=== PATIENT | male | born 1945 | race Caucasian/White ===

== ENCOUNTER 2022-07-25 16:03 | Outpatient (REF) | payer MEDICARE, SELFPAY ==
[2022-07-25 16:40] LABS: MANUAL DIFF FLAG NO
[2022-07-25 17:22] LABS: Basophils Absolute Auto 0.1 X10*3/uL (0.0-0.2); Basophils Percent Auto 0.8 % (0-2); Eosinophils Absolute Auto 0.5 X10*3/uL (0.0-0.4); Eosinophils Percent Auto 5.1 % (0-4); Hematocrit 53.6 % (42.0-52.0); Hemoglobin 17.4 g/dl (14.0-18.0); Imm Gran Abs Auto 0.03 X10*3/uL (0.00-0.03); Imm Gran Pct Auto 0.3 % (0.0-0.4); Lymphocytes Absolute Auto 2.4 X10*3/uL (1.2-4.9); Lymphocytes Percent Auto 22.8 % (20-40); Mean Corpuscular HGB Conc 32.5 g/dl (31.0-36.0); Mean Corpuscular Hemoglobin 30.1 pg (27.0-33.0); Mean Corpuscular Volume 92.7 fL (80.0-98.0); Mean Platelet Volume 10.3 fL (9.4-12.4); Monocytes Absolute Auto 0.8 X10*3/uL (0.1-1.2); Monocytes Percent Auto 8.1 % (2-11); Neutrophils Absolute Auto 6.5 x10*3/uL (2.0-8.3); Neutrophils Percent Auto 62.9 % (45-73); Platelet Count 192 X10*3/uL (160-400); Red Blood Count 5.78 X10*6/uL (4.60-5.80); Red Cell Distribution Width 13.9 % (11.0-16.0); White Blood Count 10.3 X10*3/uL (4.8-10.8)
[2022-07-25 17:43] LABS: Appearance Urine Clear; Color Urine Yellow; Glucose Urine UA Negative (Negative); Leukocyte Esterase Urine Negative (Negative); Nitrite Urine Negative (Negative); PH 5.5 (5.0-9.0); Specific Gravity - Urine 1.015 (1.005-1.025); Urine Blood Negative (Negative); Urine Ketones Negative (Negative); Urine Protein Negative (Neg-Trace)
[2022-07-25 18:12] LABS: Alanine Aminotransferase 50 U/L (0-40); Albumin Level 4.3 g/dL (3.5-5.0); Alkaline Phosphatase 87 U/L (39-117); Aspartate Amino Transferase 48 U/L (5-37); Blood Urea Nitrogen 15 mg/dL (9-16); Calcium 9.7 mg/dL (8.4-10.2); Carbon Dioxide 29 mmol/L (22-29); Chloride 99 mmol/L (96-108); Cholesterol 173 mg/dL; Estimated Glomerular Filt Rate > 60; Glucose Random 151 mg/dL (60-115); HDL Cholesterol 48 mg/dL; LDL Cholesterol Calculated 100 mg/dl; Potassium 4.6 mmol/L (3.3-5.1); Sodium 138 mmol/L (135-145); Total Protein 7.7 g/dL (6.5-8.0); Triglycerides 125 mg/dL
[2022-07-25 18:18] LABS: Microalbum/Creatinine Ratio Ur 55.5 ug/mg cr
[2022-07-25 18:22] LABS: Anion Gap 15 (12-20)
[2022-07-25 18:36] LABS: Free T4 (Free Thyroxine) 1.04 ng/dL (0.71-1.85); PSA,Total (Free>4and<10) 0.98 ng/mL (0.00-4.00); Thyroid Stimulating Hormone 1.69 uIU/mL (0.32-4.0)
[2022-07-26 08:15] LABS: Estimated Average Glucose 183 mg/dL
== END 2022-07-25 16:04 | disposition home or self-care (01) ==
LOC: HO.LAB 16:03
PROVIDERS: PCP Internal Medicine; Visit Provider Internal Medicine
DX: I25.10 Atherosclerotic heart disease of native coronary artery without angina pectoris (principal); I10 Essential (primary) hypertension; E78.00 Pure hypercholesterolemia, unspecified; R63.5 Abnormal weight gain; E11.9 Type 2 diabetes mellitus without complications; Z12.5 Encounter for screening for malignant neoplasm of prostate
CPT/HCPCS: 36415; 80053; 80061; 81003; 82043; 83036; 84153; 84439; 84443; 85025

== ENCOUNTER → 2022-09-12 14:58 | Outpatient (REF) | payer MEDICARE, SELFPAY ==
--- NOTE | 2022-09-12 15:02 | CA_ITS ---
Transthoracic Echocardiogram Patient (Last, First, Middle): Mario Rascon, Gender: Male Date of : 1945 Age: 77 Procedure Date: 09/12/2022 Procedure Type: Transthoracic Echocardiogram Location: OP Height: 180.34 cm Weight: 127.01 kg BSA: 2.43 m2 Heart Rate: bpm BP: 122 / 68 mmHg Armhole Baster Hand: MARGARETH Referring MD: Genaro Castro MD Symptoms: 125.10 ASCD W/ ANGINA Study Quality: Fair ECG Rhythm: Sinus Conclusions: - The left ventricular systolic function is normal. The visually estimated ejection fraction is between 65-70%. - No obvious valvular pathology seen on this study. Findings Left Ventricle Normal left ventricular cavity size. There is mildly increased left ventricular wall thickness. The left ventricular systolic function is normal. The visually estimated ejection fraction is between 65-70%. There is no evidence of regional wall motion abnormalities. Diastolic function is normal for age. LV peak GLS -20.7%. Right Ventricle Normal right ventricular cavity size and systolic function. Atria The left atrium is mildly dilated. The right atrium is normal in size. Aortic Valve There is a normal trileaflet aortic valve. There is no aortic valve stenosis. There is trace (trivial) aortic valve regurgitation. Mitral Valve The mitral valve appears normal. There is no mitral valve regurgitation. There is no mitral valve stenosis. Pulmonic Valve The pulmonic valve is likely normal. Tricuspid Valve There is no tricuspid valve regurgitation. Tricuspid regurgitation envelope is inadequate for calculation of right ventricular systolic pressure. Great Vessels The asc aorta is normal in size. Venous The inferior vena cava was not well visualized. Pericardium/Pleural There is no evidence of pericardial effusion. Prior Study Comparison No prior study available for comparison. Recommendations, Care & Conclusions No obvious valvular pathology seen on this study. Measurements 2D Linear Measurements IVSd: 1.20 0.6-0.9/0.6-1.0 cm LVIDd: 4.56 3.9-5.3/4.2-5.9 cm LVIDd Index: 1.88 2.4-3.2/2.2-3.1 cm/m2 LVIDs: 2.41 2.0-3.6 cm LVPWd: 1.14 0.7-1.1 cm LA Diam: 4.70 2.7-3.8/3.0-4.0 cm LAIDs Index: 1.93 1.5-2.3 cm/m2 LV Mass: 243.04 67-162/88-224 g LV Mass Index: 100.02 43-95/49-115 g/m2 LVOT Diam: 2.10 3.0+(-)1.3 cm 2D Systolic Function EF 4C: 59.50 >55% EF 2C: 70.60 >55% EF BiP: 63.80 >55% Mitral Valve MV Pk E: 0.65 MV PK A: 0.78 MV Decel Time: 273.00 E/A: 0.80 E'Lateral: 6.74 E'Medial: 4.46 E/E' Med: 14.50 E/E' Lat: 9.60 PHT: 80.00 MVA PHT: 2.75 Decel Gordon: 2.36 Aortic Valve AoV Pk Chirag: 1.61 AoV Mn Chirag: 1.13 AoV VTI: 0.37 AoV Pk Grad: 10.00 Aov Mn Grad: 6.00 SHA Cont.VTI: 3.07 AI Pk Chirag: 3.36 AI Gordon: 1.29 LVOT LVOT Pk Chirag: 1.36 LVOT Mn Chirag: 0.93 LVOT VTI: 0.33 LVOT Pk Grad: 7.00 LVOT Mn Grad: 4.00 LVOT Diam: 2.10 LVOT Area: 3.46 Diastolic Function MV Pk E: 0.65 MV Pk A: 0.78 E/A: 0.80 E'Medial: 4.46 E/E' Med: 14.50 E' Laterial: 6.74 E/E' Lat: 9.60 Right Ventricle TAPSE (mm): 19.30 TVS' Chirag: 15.80 Great Vessels Aorta Sinus of Valsalva: 3.82 2.0-3.[address] Ridge: 3.07 1.7-3.4 cm Ao Asc: 3.90 2.1-3.4 cm Updated in Other Vendor System with Status of Final Virgilio Santizo MD electronically signed on 09/14/2022 11:42:02 AM with status of Final
== END ==
LOC: HO.CARD 14:58
PROVIDERS: PCP Internal Medicine; Visit Provider Internal Medicine
DX: I25.10 Atherosclerotic heart disease of native coronary artery without angina pectoris (principal); R53.83 Other fatigue
CPT/HCPCS: 93306; 93356

== ENCOUNTER 2022-11-28 15:04 | Outpatient (REF) | payer MEDICARE, SELFPAY ==
--- NOTE | ~2022-11-28 | XR_ITS ---
EXAMINATION: XR RIBS, RIGHT CLINICAL INFORMATION: Fall pain COMPARISON: No prior exam available. TECHNIQUE: Chest frontal, 6 of likely views. FINDINGS: RIBS: Skeletal structures are normal. LUNGS AND ARIANA: Both lungs are clear. PLEURA: Blunting of right costophrenic angle suggesting small effusion. No pneumothorax. There is elevation right hemidiaphragm. HEART: The heart is normal in size. MEDIASTINUM: The mediastinum is within normal limits.. XR/XR ribs RT min 3V w CXR1V IMPRESSION: * No radiographic evidence of rib fracture. * Elevation right hemidiaphragm. * Blunting of right costophrenic angle suggesting small effusion.
[2022-11-28 15:31] LABS: MANUAL DIFF FLAG NO
[2022-11-28 16:01] LABS: Basophils Percent Auto 0.5 % (0-2); Eosinophils Absolute Auto 0.4 X10*3/uL (0.0-0.4); Eosinophils Percent Auto 5.3 % (0-4); Hematocrit 52.1 % (42.0-52.0); Hemoglobin 16.6 g/dl (14.0-18.0); Imm Gran Abs Auto 0.02 X10*3/uL (0.00-0.03); Imm Gran Pct Auto 0.2 % (0.0-0.4); Lymphocytes Absolute Auto 1.6 X10*3/uL (1.2-4.9); Lymphocytes Percent Auto 19.1 % (20-40); Mean Corpuscular HGB Conc 31.9 g/dl (31.0-36.0); Mean Corpuscular Hemoglobin 29.3 pg (27.0-33.0); Mean Platelet Volume 9.8 fL (9.4-12.4); Monocytes Absolute Auto 0.6 X10*3/uL (0.1-1.2); Monocytes Percent Auto 7.1 % (2-11); Neutrophils Absolute Auto 5.5 x10*3/uL (2.0-8.3); Neutrophils Percent Auto 67.8 % (45-73); Platelet Count 162 X10*3/uL (160-400); Red Blood Count 5.66 X10*6/uL (4.60-5.80); Red Cell Distribution Width 14.6 % (11.0-16.0); White Blood Count 8.2 X10*3/uL (4.8-10.8)
[2022-11-28 16:07] LABS: Estimated Average Glucose 160 mg/dL; Hemoglobin A1c % 7.2 %
[2022-11-28 16:31] LABS: Alanine Aminotransferase 27 U/L (0-40); Albumin Level 3.9 g/dL (3.5-5.0); Alkaline Phosphatase 90 U/L (39-117); Anion Gap 13 (12-20); Aspartate Amino Transferase 26 U/L (5-37); Bilirubin Total 0.8 mg/dL (0.0-1.0); Blood Urea Nitrogen 10 mg/dL (9-16); Carbon Dioxide 25 mmol/L (22-29); Chloride 106 mmol/L (96-108); Estimated Glomerular Filt Rate > 60; Glucose Random 226 mg/dL (60-115); Potassium 4.4 mmol/L (3.3-5.1); Sodium 140 mmol/L (135-145); Total Protein 6.9 g/dL (6.5-8.0)
== END 2022-11-28 15:05 | disposition home or self-care (01) ==
LOC: HO.LAB 15:04
PROVIDERS: PCP Internal Medicine; Visit Provider Internal Medicine
DX: R07.81 Pleurodynia (principal); E11.9 Type 2 diabetes mellitus without complications; I10 Essential (primary) hypertension; I25.10 Atherosclerotic heart disease of native coronary artery without angina pectoris
CPT/HCPCS: 36415; 71101; 80053; 83036; 85025

== ENCOUNTER 2024-12-02 15:42 | Outpatient (AMB) | payer MEDICARE, SELFPAY ==
[2024-12-02 15:49] VITALS: BP 124/68; PULSE 64; TEMP 37; O2SAT 95; BMI 39.5
--- NOTE | 2024-12-02 15:49 | A.OFFPC_ITS ---
Vital Signs 12/02/24 15:49 Height 5 ft 10 in Weight 275 lb BMI 39.5 BP 124/68 Blood Pressure Location Lt brachial Position Sitting Pulse 64 Pulse Source Pulse Oximeter Temp 98.6 F Temp Source Axillary Pulse Oximetry (%) 95 Intake Visit Reasons: routine Cook Night Required: No Accompanied by: Self / Same As Patient Allergies No Known Allergies Allergy (Verified 12/02/24 15:55) Tobacco use date assessed: 12/02/24 Fall risk assessment: 1 Fall in past year Last assessed Fall Risk: 12/02/24 Dental Screening Dental Screen Date: 12/02/24 Did you have a dental visit in the last 12 months?: Yes Did you have a dental problem in the last 6 months where you did not have access to dental care?: No HPI HPI Comments History of Present Illness Details The patient is a 79 year old male with past medical history of diabetes, CAD, htn, hld, insomnia, anxiety/depression, BPH presenting for follow up. Last seen by PCP in August DM: Last A1C 6.3% in October. On metformin 750mg daily. Had been placed on jardi ance by cardiology. Taken off for concern of UTI by cardiology ~1 month ago. They recommended him going on antibiotic but he has waited until this visit today to discuss. He has chronic tinea cruris CV: Follows with Dr House. On crestor, losartan. Denies chest pain. No exertional dyspnea but excessive exertional fatigue. He has chronic tremor-says this has been worked up by neurology in the past and he has been told essential. He seems to have both essential and resting tremulousness. He does have cogwheel rigidity on exam so might consider reevaluation by neurology Insomnia: on trazodone 25mg daily ROS CONSTITUTIONAL: Denies weight loss, fever and chills. HEENT: Denies changes in vision and hearing. RESPIRATORY: Denies SOB and cough. CV: Denies palpitations and CP GI: Denies abdominal pain, nausea, vomiting and diarrhea. : Denies dysuria and urinary frequency. MSK: Denies new myalgia and joint pain. SKIN: Denies rash and pruritus. NEUROLOGICAL: Denies headache PSYCHIATRIC: Denies recent changes in mood. PHYSICAL EXAM: GENERAL: Alert and oriented x 3. NAD EYES: EOMI. Anicteric. HENT: Moist mucous membranes. No scleral icterus. No cervical lymphadenopathy. LUNGS: Clear to auscultation bilaterally. CARDIOVASCULAR: Regular rate and rhythm. No murmur. No JVD. ABDOMEN: Soft, non-tender +bs EXTREMITIES: No edema. Non-tender. SKIN: No rashes or lesions. Warm. NEUROLOGIC: No focal neurological deficits. CN II-XII grossly intact PSYCHIATRIC: Cooperative. Appropriate mood and affect [facility] Family History Mother Ovarian cancer Father Prostate cancer Social History Housing: Apartment Patient Tobacco Use Status: Never used Tobacco e-Cigarette/Vaping Use: Never Used service: No Current occupational status: retired Cognitive needs: No Hearing needs: No Vision needs: Yes (reading glasses) Questionnaire PHQ-9 Over the last 2 weeks, how often have you been bothered by any of the following problems? 1. Little interest or pleasure in doing things: not at all 2. Feeling down, depressed, or hopeless: not at all 3. Trouble falling or staying asleep, or sleeping too much: not at all 4. Feeling tired or having little energy: not at all 5. Poor appetite or overeating: not at all 6. Feeling bad about yourself - or that you are a failure or have let yourself or your family down: not at all 7. Trouble concentrating on things, such as reading the newspaper or watching television: not at all 8. Moving or speaking so slowly that other people could have noticed. Or the opposite - being so fidgety or restless that you have been moving around a lot more than usual: not at all 9. Thoughts that you would be better off or of hurting yourself in some way: not at all Total score: 0 Depression Screening Interpretation: Negative Depression Screening Done: Yes 72217 - PHQ-9 Billing: Yes Source: Developed by Drs. Abdulkadir Stokes, Lary Clark, Merrill Altamirano and colleagues, with an educational sushant from [employer]. Thrive Questionnaire Date Thrive assessed: 12/02/24 I am a: Patient Within the past 12 months, did the food you bought not last and you didn't have the money to get more?: Never true Within the past 12 months, did you worry whether your food would run out before you got money to buy more?: Never true Do you have trouble paying for medicines?: No Do you have trouble getting transportation to medical appointments?: No Do you have trouble paying your heating and electricity bill?: No Do you have trouble taking care of your child, family member or friend?: No Do you have trouble with day-to-day activities such as bathing, preparing meals, shopping, managing finances, etc.?: No Are you currently unemployed and looking for a job?: No Are you interested in more education?: No THRIVE Score: 0 AUDIT C Alcohol Use Questionnaire (AUDIT-C) 1. How often do you have a drink containing alcohol?: Never 3. How often do you have six or more drinks on one occasion?: Never Total Score: 0 YAMILEX-7 AMB Questionnaire YAMILEX-7 Date YAMILEX - 7 assessed: 12/02/24 Feeling nervous, anxious, or on edge: 0 = Not at all Not being able to stop or control worryin = Not at all Worrying too much about different things: 0 = Not at all Trouble relaxin = Not at all Being so restless that it is hard to sit still: 0 = Not at all Becoming easily annoyed or irritable: 0 = Not at all Feeling afraid as if something awful might happen: 0 = Not at all Total YAMILEX-7 score (0-4 normal; 5-9 mild; 10-14 moderate; 15-21 severe): 0 Source: Developed by Drs. Abdulkadir Stokes, Lary Clark, Merrill Altamirano and colleagues, with an educational sushant from [employer]. Physical exam (Primary Care) Vital Signs: Last Vital Signs Temp 98.6 F 12/02/24 15:49 Pulse 64 12/02/24 15:49 BP 124/68 12/02/24 15:49 Pulse Ox 95 12/02/24 15:49 BMI result Body Mass Index 39.5 Tobacco/Smoking Status: Tobacco use Status Tobacco use date assessed 12/02/24 12/02/24 16:02 Patient Tobacco Use Status Never used Tobacco 12/02/24 16:02 e-Cigarette/Vaping Use Never Used 12/02/24 16:02 Depression Screening Interpretation: Negative Thrive Assessment: Date of Thrive Assessment Date Thrive assessed 12/02/24 12/02/24 16:04 Coding Level of Care Code New Pt Level 4 (29490) Complex EM visit Add On G2211 Diagnoses Primary hypertension I10 Hypertension type: primary hypertension Type 2 diabetes mellitus without complication, without long-term current use of insulin E11.9 Diabetes mellitus type: type 2 Diabetes mellitus adjunct faculty for medical terminology insulin use: without fci use Diabetes mellitus complication status: without complication Urinary tract infection without hematuria, site unspecified N39.0 Urinary tract infection type: site unspecified Hematuria presence: without hematuria Major depressive disorder in partial remission, unspecified whether recurrent F32.4 Major depression recurrence: unspecified whether recurrent Additional Codes PHQ-9 - 34933 - PHQ-9 Billing: Yes ([id number]) Assessment & Plan Assessment & Plan (1) Hypertension: Code(s): I10 - Essential (primary) hypertension Category: Medical Qualifiers: Hypertension type: primary hypertension Qualified Code(s): I10 - Essential (primary) hypertension (2) Diabetes: Code(s): E11.9 - Type 2 diabetes mellitus without complications Category: Medical Qualifiers: Diabetes mellitus type: type 2 Diabetes mellitus fci insulin use: without adjunct faculty for medical terminology use Diabetes mellitus complication status: without comp lication Qualified Code(s): E11.9 - Type 2 diabetes mellitus without complications (3) UTI (urinary tract infection): Code(s): N39.0 - Urinary tract infection, site not specified Category: Medical Qualifiers: Urinary tract infection type: site unspecified Hematuria presence: without hematuria Qualified Code(s): N39.0 - Urinary tract infection, site not specified (4) Major depress, part remis: Code(s): F32.4 - Major depressive disorder, single episode, in partial remission Category: Medical Qualifiers: Major depression recurrence: unspecified whether recurrent Qualified Code(s): F32.4 - Major depressive disorder, single episode, in partial remission Plan 79 year old male to establish care Past medical, surgical, social reviewed Tremor-declines medication and neurology referral at this time Diabetes has been well controlled ?UTI-abx ordered. requests mail ordered. Fluconazole ordered. no history of prol onged QT. may take together Labs ordered. close follow up Orders: Orders TSH reflex Free T4 12/02/24 E11.9 - Type 2 diabetes mellitus without complications Complete Blood Count Auto Diff 12/02/24 E11.9 - Type 2 diabetes mellitus without complications, I10 - Essential (primary) hypertension, N39.0 - Urinary tract infection, site not specified Comprehensive Met. Panel 12/02/24 E11.9 - Type 2 diabetes mellitus without complications, I10 - Essential (primary) hypertension, N39.0 - Urinary tract infection, site not specified Hemoglobin A1c 12/02/24 E11.9 - Type 2 diabetes mellitus without complications, I10 - Essential (primary) hypertension, N39.0 - Urinary tract infection, site not specified Lipid Panel 12/02/24 E11.9 - Type 2 diabetes mellitus without complications, I10 - Essential (primary) hypertension, N39.0 - Urinary tract infection, site not specified UA CC w/rflx Micro + Cult 12/02/24 E11.9 - Type 2 diabetes mellitus without complications, I10 - Essential (primary) hypertension, N39.0 - Urinary tract infection, site not specified Medications: New metformin ER 500 mg PO DAILY 90 tabs 3RF ciprofloxacin HCl may pay out of pocket if not covered by insurance 500 mg PO BID 20 tabs 0RF fluconazole 150 mg PO DAILY 7 tabs 0RF
== END 2024-12-02 16:34 | disposition home or self-care (01) ==
LOC: HO.HMCHD 15:43
PROVIDERS: PCP Internal Medicine; Visit Provider Internal Medicine
DX: I10 Essential (primary) hypertension (principal); E11.9 Type 2 diabetes mellitus without complications; N39.0 Urinary tract infection, site not specified; F32.4 Major depressive disorder, single episode, in partial remission

== ENCOUNTER → 2024-12-02 15:42 | Outpatient (BNVA) | payer MEDICARE, SELFPAY | PROVIDERS: PCP Internal Medicine; Visit Provider Internal Medicine | DX: I10 Essential (primary) hypertension (principal); E11.9 Type 2 diabetes mellitus without complications; N39.0 Urinary tract infection, site not specified; F32.4 Major depressive disorder, single episode, in partial remission; I25.10 Atherosclerotic heart disease of native coronary artery without angina pectoris; E78.5 Hyperlipidemia, unspecified; G47.00 Insomnia, unspecified; N40.0 Benign prostatic hyperplasia without lower urinary tract symptoms; Z79.84 Long term (current) use of oral hypoglycemic drugs; Z79.899 Other long term (current) drug therapy | CPT/HCPCS: 96127; 99202 ==

== ENCOUNTER 2025-03-04 15:00 | Outpatient (AMB) | payer MEDICARE, SELFPAY ==
--- OUTSIDE RECORDS SUMMARY | 2025-03-04 15:02 | XMS_ITS | Encounter Summary ---
Author Organization [facility] Address [address] [place] [address] [place] [phone] Phone Care Team Providers Care Coffee Machine Technician Name Role Phone Tien Josue MD Unavailable [phone] Genaro Castro MD Primary Care Provider Encounter Details Date Type Department Care Team (Late st Contact Info) Description 01/13/2025 Transcribe Orders [facility] [address] [place] [address] [place] [address] Ember Louis MD [address] [place] [address] [place] [id number] Mixed hyperlipidemia (Primary Dx); Urinary tract infection without hematuria, site unspecified; Diabetes mellitus without complication; Hypertension, unspecified type Social History Tobacco Use Types Packs/Day Years Used Date Smoking Tobacco: Never Smokeless Tobacco: Never Alcohol Use Standard Drinks/Week Comments No 0 (1 standard drink = 0.6 oz pur e alcohol) Education Answer Date Recorded Are you interested in more education? Not on melody e 11/01/2022 Are you concerned about learning? Not on file 11/01/2022 No 11/01/2022 No 11/01/2022 Digital Access Answer Date Recorded No 12/02/2022 No 12/02/2022 Reliable internet access at home? Not on file 12/02/2022 Device with a working camera? Not on file Sex and Gender Information Value Date Recorded Sex Assigned at Male 10/24/2023 7:13 PM EDT Legal Sex Male 5:51 PM EDT Gender Identity Male 10/24/2023 7:13 PM EDT Sexual Orientation Straight 10/24/2023 7: 15 PM EDT documented as of this encounter Plan of Treatment Upcoming Encounters Date Type Department Care Team (Late st Contact Info) Description 07/29/2025 1:40 PM EST Office Visit [facility] [address], [address] [place] [address] Shin Sutton MD [address] [facility], [address] [place] [address] [email or web address] documented as of this encounter Results * (ABNORMAL) CBC (01/13/2025 10:26 AM EDT) WBC 8.42 4.00 - 11.00 K/uL [facility] RBC 5.38 4.50 - 5.90 M/uL [facility] HGB 16.3 13.5 - 17.5 g/dL [facility] HCT 50.2 41.0 - 53.0 % [facility] PLT 147(L) 150 - 450 K/uL [facility] MCV 93.3 80.0 - 100.0 fL [facility] MCH 30.3 27.0 - 31.0 pg [facility] MCHC 32.5 32.0 - 36.0 g/dL [facility] RDW 14.3 11.5 - 14.5 % [facility] MPV 9.9 8.4 - 12.0 fL [facility] NRBC 0.00 0.00 /100 WBCs [facility] ABSOLUTE NRBC 0.00 0.00 K/uL [facility] Blood 01/13/2025 10:2 6 AM EDT 01/13/2025 10:34 AM EDT us Ember Louis MD LAB BLOOD ORDERABLES Final R esult [facility] [address] [place] [address] * (ABNORMAL) Comprehensive metabolic panel (01/13/2025 10:26 AM EDT) SODIUM 138 133 - 146 mmol/L [facility] POTASSIUM 4.5 3.3 - 5.1 mmol/L [facility] Comment:Specimen slightly he molyzed, result may be falsely elevated. CHLORIDE 100 96 - 108 mmol/L [facility] CO2 27 21 - 35 mmol/L [facility] BUN 11 6 - 19 mg/dL [facility] CREATININE 0.70 0.5 - 1.5 mg/dL [facility] GLUCOSE 109(H) 70 - 99 mg/dL [facility] ALBUMIN 3.8(L) 3.9 - 4.8 g/dL [facility] TOTAL PROTEIN 7.2 6.5 - 8.0 g/dL [facility] CALCIUM 9.4 8.4 - 10.3 mg/dL [facility] ALKALINE PHOSPHATASE 89 39 - 117 U/L [facility] TOTAL BILIRUBIN 0.6 0.0 - 1.2 mg/dL [facility] AST 44(H) 0 - 37 U/L [facility] ALT 31 0 - 40 U/L [facility] GLOBULIN 3.4 1 - 4.8 g/dL [facility] EGFR 94 >59 mL/min/1.7 3m2 [facility] Comment:Estimated glomerular filtration rate calculated using the CKD-EPI refit equation. ANION GAP 16 10 - 20 mmol/L [facility] Blood 01/13/2025 10:2 6 AM EDT 01/13/2025 10:34 AM EDT us Ember Louis MD LAB BLOOD ORDERABLES Final R esult [facility] [address] [place] [address] * TSH with reflex (01/13/2025 10:26 AM EDT) TSH 2.74 0.27 - 4.20 uIU/mL [facility] Blood 01/13/2025 10:2 6 AM EDT 01/13/2025 10:34 AM EDT Ember Louis MD LAB BLOOD ORDERABLES Final R esult Performing Organization Address [facility] de Phone Number [address] [address] * (ABNORMAL) URINALYSIS WITH SEDIMENT (01/13/2025 10:26 AM EDT) WBC 0-4(A) NONE SEEN /hpf [facility] RBC 0-2(A) NONE SEEN /hpf [facility] URINE EPITHELIAL 0-4(A) NONE SEEN [facility] MUCUS 2+(A) NONE SEEN /hpf [facility] BACTERIA Trace(A) NONE SEEN /hpf [facility] CAST 0-2 [facility] Comment:HYALINE CAST COLOR Yellow Yellow [facility] CLARITY Clear [facility] GLUCOSE Negative Negative [facility] BILI Negative Negative [facility] KETONES Trace(A) Negative [facility] SPECIFIC GRAVITY >1.030 1.005 - 1.030 [facility] BLOOD Negative Negative [facility] PH 6.0 5.0 - 8.0 [facility] Protein-UA 1+(A) Negative [facility] NITRITE Negative Negative [facility] Leukocyte esterase, ur Negative Negative [facility] Urine (Urine) 01/13/2025 10: 26 AM EDT 01/13/2025 10:34 AM EDT Ember Louis MD URINE ORDERABLES Final Resul t Performing Organization Address [facility] de Phone Number [address] [address] * (ABNORMAL) Urine Culture (01/13/2025 10:26 AM EDT) Special Requests None 01/13/2025 10:27 AM EDT [facility] Urine Culture >100,000 colony forming units per mL MIXED DENA (3 OR MORE COLONY TYPES) Culture indicates contamination . Please resubmit if necessary.(A) 01/15/2025 10:49 AM EDT [facility] Urine (Urine) 01/13/2025 10: 26 AM EDT 01/13/2025 10:35 AM EDT Comment:URINE Ember Louis MD MICROBIOLOGY - GENERAL ORDER DONOVAN Final Result Performing Organization Address City/[facility]/ZIP Co de Phone Number [address] [address] * (ABNORMAL) Hemoglobin A1c (01/13/2025 10:26 AM EDT) HEMOGLOBIN A1C 6.5(H) 4.3 - 5.8 % [facility] Blood 01/13/2025 10:2 6 AM EDT 01/13/2025 10:35 AM EDT us Ember Louis MD LAB BLOOD ORDERABLES Final R esult Performing Organization Address City/[facility] Co de Phone Number [address] [address] * (ABNORMAL) Lipid panel (01/13/2025 10:26 AM EDT) HDL 55 mg/dL [facility] Comment: Interpretation <40 mg/dL: Low HDL cholesterol (major risk factor for CHD) Greater than or equal to 60 mg/dL: High HDL cholesterol ( negative risk factor for CHD) HDL - cholesterol is affected by a number of factors, e.g. smoking, excerise, hormones, sex and age. CHOLESTEROL 133 0 - 240 mg/dL [facility] TRIGLYCERIDES 81 30 - 160 mg/dL [facility] LDL 62 50 - 129 mg/dL [facility] Comment: LDL levels in terms of risk for coronary heart disease: <100 mg/dL: Optimal 100-129 mg/dL: Near or above optimal 130-159 mg/dL: Borderline high 160-189 mg/dL: High >190 mg/dL: Very High CARDIAC RISK RATIO 2.4(L) 3.4 - 5.0 [facility] Blood 01/13/2025 10:2 6 AM EDT 01/13/2025 10:35 AM EDT us Ember Louis MD LAB BLOOD ORDERABLES Final R esult [facility] [address] [place] [address] documented in this encounter Visit Diagnoses Diagnosis Mixed hyperlipidemia- Primary Urinary tract infection without hematuria, site unspecified Diabetes mellitus without complication Type II or unspecified type diabetes mellitus without mention of complication, not stated as uncontrolled Hypertension, unspecified type documented in this encounter Care Teams Coffee Machine Technician Relationship Specialty Start Date End Date Genaro aCstro MD [address] [place] [phone] PCP - General Internal Medicine 05/28/23 Tien Josue MD [address] [place] [id number] [email or web address] LMR Provider 04/24/17 documented as of this encounter Additional Source Comments The information contained in this document represents components of the legal health record. It is not the complete legal health record.[facility]
--- OUTSIDE RECORDS SUMMARY | 2025-03-04 15:02 | XMS_ITS | Encounter Summary ---
Author Organization [facility] Address [address] [place] [address] Phone Care Team Providers Care Student Officer Name Role Phone Aydin Cronin MD Primary Care Provider [phone] Tati Arzola WET PROCESS MILLER HEAD Unavailable Anam Mcknight MD Unavailable Shin Sutton MD Unavailable Castro Clay DO Unavailable [phone] Aydin Cronin MD Unavailable Keegan Acevedo MD Unavailable [phone] Tien Josue MD Unavailable [phone] Wanda Morrison MD Primary Care Provider [phone] Ed Benton MD Primary Care Provider Genaro Castro MD Primary Care Provider Encounter Details Date Type Department Care Team (Latest Contact Info) Description 09/15/2017 Transcribe Orders [facility] [address] [place] [address] Johnnie Castillo MD [address] [facility], [address] [place] [address] [email or web address] Numbness (Primary Dx); Weakness Social History Tobacco Use Types Packs/Day Years Used Date Smoking Tobacco: Never Smokeless Tobacco: Never Sex and Gender Information Value Date Recorded Sex Assigned at Male 10/24/2023 7:13 PM EDT Legal Sex Male 5:51 PM EDT Gender Identity Male 10/24/2023 7:13 PM EDT Sexual Orientation Straight 10/24/2023 7: 15 PM EDT documented as of this encounter Plan of Treatment Upcoming Encounters Date Type Department Care Team (Late st Contact Info) Description 07/29/2025 1:40 PM EST Office Visit [facility] [address] [facility] 3rd Floor, [address] [place] [address] Shin Sutton MD [address] [facility], [address] [place], [place] [id number] [email or web address] documented as of this encounter Results * Acetylcholine receptor binding antibody (09/15/2017 4:05 PM EDT) ACH RECEPTOR BIND AB 0.00 <=0.02 nmol/L [facility] DPT OF LAB MED AND PAT+ Comment: (NOTE) ADDITIONAL INFORMATION This test was developed and its performance characteristics determined by [facility] in a manner consistent with CLIA requirements. This test has not been cleared or approved by the U.S. Food and Drug Administration. Blood 09/15/2017 4:05 PM EDT 09/16/2017 9:55 AM EDT us Johnnie Castillo MD LAB BLOOD ORDERABLES Final R esult [facility] DPT OF LAB MED AND PAT+ [address] [place] [address] * CPK (creatine kinase) (09/15/2017 4:05 PM EDT) CREATINE KINASE 81 35 - 232 U/L [facility] Blood 09/15/2017 4:05 PM EDT 09/15/2017 6:28 PM EDT us Johnnie Castillo MD LAB BLOOD ORDERABLES Final R esult [facility] [address] [place] [address] documented in this encounter Visit Diagnoses Diagnosis Numbness- Primary Disturbance of skin sensation Weakness Other malaise and fatigue documented in this encounter Additional Health Concerns Infection Onset Date Last Indicated Resolved Time CoV-Risk 04/05/2021 04/05/2021 04/15/2021 1:25 AM EDT documented as of this encounter Care Teams Student Officer Relationship Specialty Start Date End Date Aydin Cronin MD [address] [address] [email or web address] PCP - General 04/24/17 10/21/17 Wanda Morrison MD [address] [place] [address] [place] [phone] [email or web address] PCP - General Family Medicine 10/22/17 05/19/18 Ed Benton MD [address] [place] [address] PCP - General Internal Medicine 05/20/18 05/27/23 Genaro Castro MD [address] [place] [address] [address] [place] [address] PCP - General Internal Medicine 05/28/23 Tati Arzola, BRITTANY [address] [place] [address] [address] [place] [address] [email or web address] Historical LMR Provider 04/24/1707/14/21 Anam Mcknight MD [address] [place] [address] [email or web address] Historical LMR Provider 04/24/17 07/14/21 Shin Sutton MD [address] [facility] [address] [place] [address] [email or web address] Historical LMR Provider 04/24/17 07/14/21 Castro Clay DO [address] [place] [address] [facility], [place] [address] [email or web address] Historical LMR Provider 04/24/17 07/14/21 Aydin Cronin MD [address] [place] [address] [email or web address] Historical LMR Provider 04/24/17 2 [place] [address] Historical LMR Provider 04/24/17 2 Tien Josue MD [address] [place] [address] [email or web address] Historical LMR Provider 04/24/17 documented as of this encounter Additional Source Comments The information contained in this document represents components of the legal health record. It is not the complete legal health record.[facility]
--- OUTSIDE RECORDS SUMMARY | 2025-03-04 15:02 | XMS_ITS | Encounter Summary ---
Author Organization [facility] Address [address] [place] [address] Phone Care Team Providers Care Zone Supervisor Firearms Name Role Phone Tati Arzola Aldo SOLID FIBER PASTER OPERATOR Unavailable Anam Mcknight MD Unavailable Shin Sutton MD Unavailable Castro Clay DO Unavailable Aydin Cronin MD Unavailable Keegan Acevedo MD Unavailable [phone] Tien Josue MD Unavailable [phone] Wanda Morrison MD Primary Care Provider Ed Benton MD Primary Care Provider Genaro Castro MD Primary Care Provider Encounter Details Date Type Department Care Team (Late st Contact Info) Description 10/22/2017 Procedure [facility] Admitting Dept Virtual Department [address] [place] [address] Social History Tobacco Use Types Packs/Day Years Used Date Smoking Tobacco: Never Smokeless Tobacco: Never Alcohol Use Standard Drinks/Week Comments No 0 (1 standard drink = 0.6 oz pur e alcohol) Sex and Gender Information Value Date Recorded Sex Assigned at Male 10/24/2023 7:13 PM EDT Legal Sex Male 5:51 PM EDT Gender Identity Male 10/24/2023 7:13 PM EDT Sexual Orientation Straight 10/24/2023 7: 15 PM EDT documented as of this encounter Plan of Treatment Upcoming Encounters Date Type Department Care Team ([facility] Contact Info) Description 07/29/2025 1:40 PM EST Office Visit [facility] 3rd Floor, [address] [place] [address] Shin Sutton MD [address] [facility], [address] [place] [address] [email or web address] documented as of this encounter Visit Diagnoses Not on filedocumented in this encounter Additional Health Concerns Infection Onset Date Last Indicated Resolved Time CoV-Risk 04/05/2021 04/05/2021 04/15/2021 1:25 AM EDT documented as of this encounter Care Teams Zone Supervisor Firearms Relationship Specialty Start Date End Date Wanda Morrison MD [address] [place] [address], [address] [place] [phone] [email or web address] PCP - General Family Medicine 10/22/17 05/19/18 Ed Benton MD [address] [place] [address] PCP - General Internal Medicine 05/20/18 05/27/23 Genaro Castro MD [address] [place] [address] Dr [address]REZ [address] [place] [address] PCP - General Internal Medicine 05/28/23 Tati Arzola, BRITTANY [address] [address] [email or web address] Historical LMR Provider 04/24/1707/14/21 Anam Mcknight MD [address] [place] [address] [email or web address] Historical LMR Provider 04/24/17 07/14/21 Shin Sutton MD [address] [facility], [address] [place] [address] [email or web address] Historical LMR Provider 04/24/17 07/14/21 Castro Clay DO [address] [place] [address] [facility] Medicine, [place] [address] [email or web address] Historical LMR Provider 04/24/17 07/14/21 Aydin Cronin MD [address] [place] [address] [email or web address] Historical LMR Provider 04/24/17 2 Keegan Acevedo MD [address] [place] [address] Historical LMR Provider 04/24/17 2 Tien Josue MD [address] [place] [address] [email or web address] Historical LMR Provider 04/24/17 documented as of this encounter Additional Source Comments The information contained in this document represents components of the legal health record. It is not the complete legal health record.[facility]
--- OUTSIDE RECORDS SUMMARY | 2025-03-04 15:02 | XMS_ITS | Encounter Summary ---
Author Organization [facility] Address [address] [address] Phone Care Team Providers Care Timber Hand Name Role Phone Tien Josue MD Unavailable [phone] Genaro Castro MD Primary Care Provider Reason for Referral * MRI/CAT Scan - Closed Specialty Diagnoses / Procedures Referred By Richard hammer Referred To Contact Radiology Diagnoses Other forms of angina pectoris Procedures NC Myocardial Perfusion Pharmacologic Stress Multiple NC Myocardial Perfusion Exercise Multiple Shin Sutton MD Phone: tel: fax: [email or web address] Referral ID Status Reason Start Date Expiration Date Visits Re quested Visits Authorized [id number] Closed 05/28/2023 1 1 Encounter Details Date Type Department Care Team (Latest Contact Info) Description 08/14/2023 Ancillary Orders [facility] [address] [place] [address] 3rd Floor, [address] [place] [address] Shin Sutton MD [address] [facility], [address] [address] [email or web address] Essential hypertension (Primary Dx); Coronary artery disease involving [place] coronary artery of [place] heart without angina pectoris; Mixed hyperlipidemia; Other forms of angina pectoris Social History Tobacco Use Types Packs/Day Years [...] Description 07/29/2025 1:40 PM EST Office Visit [facility] [address] [place] [address] 3rd Floor, [address] [place] [address] Shin Sutton MD [address] [place] [address], [address] [address] [email or web address] documented as of this encounter Results * NC Myocardial Perfusion Pharmacologic Stress Multiple (08/14/2023 2:25 PM EST) Stress/rest perfusion ratio 1.02 Nuc Stress EF 66 % SNMDIAVOL 101.0 mL SNMSYSVOL 34.0 mL Nuc Rest EF 67 % RNMDIAVOL 108.0 mL RNMSYSVOL 36.0 mL Anatomical Region Laterality Modality Heart, Vascular Ultrasound Narrative 08/15/2023 4:19 PM EST Normal myocardial perfusion imaging. There are no fixed or reversible perfusion defects. TID ratio is normal at 1.02. LVEF was 67% at rest and 66% poststress. Comparison is made to the prior study report from August 2016. There are no residual perfusion defects. Stress Findings NUCLEAR REPORT: TYPE OF STUDY: Myocardial Perfusion Imaging after Regadenoson protocol with gated SPECT. PROTOCOL USED: One day Regadenoson rest-stress protocol in the supine position. Images were obtained in gated tomographic technique. Images were processed in SPECT format, reconstructed tomographically and compared [id number] in short axis, horizontal long axis and vertical long axis. DOSE: Technetium 99m Sestamibi 7.5 mCi injected intravenously in the right arm antecubital vein at rest on 08/14/2023 with post injection scan time of 60 minutes. Technetium 99m Sestamibi 22.4 mCi injected intravenously in the right arm antecubital vein during stress after Regadenoson injection on 08/14/2023 with post injection scan time of 40 minutes. Overall image quality is good. ECG STRESS REPORT: WALKING REGADENOSON STUDY WEIGHT:287 The Nuclear study was performed as a walking pharmacologic study due to to unsteady gait with related inability to exercise on a treadmill to reach Maximum Predicted Heart Rate (MPHR). Mario Rueda received 0.4 mg of Regadenoson after walking on the treadmill for 1.0 minutes at 1.0 miles per hour. Regadenoson was given IV push over 10 seconds as per protocol immediately followed by injection of Tc99m Sestamibi by Iglesia Stokes, the medical technologist generalist. 1. EKG - Baseline EKG showed SR HR 99 bpm. After injection of lexiscan, there were sagging ST segment in III without EKG changes meeting criteria for ischemia. 2. SYMPTOMS - No chest pain. 3. PHYSIOLOGY - Resting HR was 97 bpm. After Lexiscan injection, HR was 137 bpm (95% MPHR). BP 142/80 mmHg at rest, BP 176/98 mmHg after Lexiscan injection, BP 148/82 mmHg on discharge from stress lab. 4. ARRHYTHMIAS - none Conclusion - The EKG portion of this test is non diagnostic for ischemia. No symptoms concerning for angina. Nuclear images pending and will be reported separately. See attached stress report for full details. Ciarra Reyna PA-C, MPH Stress Function Defect Left ventricular global function is normal during stress. Stress ejection fraction is 66 %. The stress end diastolic cavity size is normal. The stress end systolic cavity size is normal. Rest Function Defect Left ventricular global function is normal at rest. Resting ejection fraction was 67 %. The rest end diastolic cavity size is normal. The rest end systolic cavity size is normal. Nuclear Prior Study There is a prior study available for comparison that was performed on 08/12/2016. Nuclear Ancillary Finding There is no evidence of TID. The TID ratio is 1.02. . Perfusion Scoring Resting Summed Score: 2 Percent Normal: 2.94% Mild count reduction in the following segments: basal inferolateral and mid inferolateral. All other segments are normal. SUPINE IMAGING Perfusion Scoring Stress Summed Score: 1 Percent Normal: 1.47% Mild count reduction in the following segments: basal inferolateral. All other segments are normal. PRONE IMAGING Perfusion Scores: SRS Score: 2 Percentage Abnormal: 2.94% Perfusion Scores: SSS Score: 1 Percentage Abnormal: 1.47% Perfusion Scores: SDS Score: N/A Percentage Abnormal: N/A Procedure Note Raymond Olmos MD - 08/15/2023 Normal myocardial perfusion imaging. There are no fixed or reversible perfusion defects. TID ratio is normal at 1.02. LVEF was 67% at rest and 66% poststress. Comparison is made to the prior study report from August 2016. Thereare no residual perfusion defects. us Shin Sutton MD CV NM CARDIAC Final Resul t documented in this encounter Visit Diagnoses Diagnosis Other forms of angina pectoris- Primary Essential hypertension- Primary Unspecified essential hypertension Coronary artery disease involving [place] coronary artery of [place] heart without angina pectoris Mixed hyperlipidemia Other forms of angina pectoris documented in this encounter Care Teams Timber Hand Relationship Specialty Start Date End Date Genaro Castro MD [address] [place] [address] [address] [place] [address] PCP - General Internal Medicine 05/28/23 Tien Josue MD [address] [place] [address] [email or web address] Historical LMR Provider 04/24/17 documented as of this encounter Additional Source Comments The information contained in this document represents components of the legal health record. It is not the complete legal health record.[facility]
--- OUTSIDE RECORDS SUMMARY | 2025-03-04 15:02 | XMS_ITS | Clinical Summary ---
Author Organization [facility] Address [address] [place] [address] Phone Care Team Providers Care Household Coordinator Name Role Phone Tien Josue MD Unavailable [phone] Genaro Castro MD Primary Care Provider Allergies Active Allergy Reactions Criticality Noted Date Comments Enalapril 02/20/2022 Zbgefrq-Fph-Iwa Reductase Inhibitors Myalgia Medium 06/02/2017 Tolerates rosuvastatin Medications aspirin 81 MG EC tablet Take by mouth daily. Active allopurinol (ZYLOPRIM) 100 MG tablet Take 100 mg by mouth daily. Active melatonin 5 mg Cap Take 5 mg by mouth nightly at bedtime. Active nystatin (NYSTOP) powder Apply 1 application topically 4 (four) times a day. Active hydrocortisone 2.5 % cream Apply 1 application. topically daily as needed. 2 Active glipiZIDE (GLUCOTROL XL) 5 MG 24 hr tablet Take 5 mg by mouth 2 (two) times a day. 4 Active traZODone (DESYREL) 50 MG tablet Take 50 mg by mouth nightly at bedtime. 4 Active metFORMIN (GLUCOPHAGE-XR) 750 MG 24 hr tablet Take 750 mg by mouth daily with breakfast. 4 Active tamsulosin (FLOMAX) 0.4 mg Cap Take by mouth. 4 Active rosuvastatin (CRESTOR) 40 MG tabletIndicatio ns:Medication refill TAKE 1 TABLET DAILY 90 tablet 3 5 Active hydroCHLOROthia zide 25 MG tablet Take 1 tablet (25 mg total) by mouth daily. 90 tablet 3 5 Active metoprolol succinate (TOPROL-XL) 25 MG 24 hr tabletIndicatio ns:Medication refill TAKE 1 TABLET DAILY 90 tablet 3 5 Active ciprofloxacin HCl (CIPRO) 500 MG tablet Take 500 mg by mouth 2 (two) times a day. 5 Active fluconazole (DIFLUCAN) 150 MG tablet Active losartan (COZAAR) 100 MG tabletIndicatio ns:Medication refill TAKE 1 TABLET DAILY 90 tablet 3 5 Active Active Problems Problem Noted Date Diagnosed Date Urinary tract infection 11/11/2024 Assessment & Plan (11/11/2024 2:35 PM EDT): Images from the original note were not included. He has been having intermittent symptoms consistent with a UTI. Someone had ordered him for a urinalysis, he does not recall who. I have reviewed this and he does look consistent with a UTI. He is again having symptoms of urinary urgency/frequency. He was never prescribed any antibiotics I have asked him to stop taking his Jardiance I have asked him to follow-up with either his PCP or his urologist today for treatment of what I think is a UTI Diastolic dysfunction 11/11/2024 Assessment & Plan (01/17/2025 1:23 PM EDT): Today he is telling me that he never had exertional dyspnea which he had said he did have at the last visit. However apparently he was having leg swelling which he says notably improved after the addition of hydrochlorothiazide. He did have a significant UTI while on Jardiance and should not take this medication again. Currently denying any symptoms concerning for CHF. He is euvolemic on examination. Will just continue him on hydrochlorothiazide for now. In the future could consider adding Aldactone. Assessment & Plan (11/11/2024 2:39 PM EDT): His exertional dyspnea did improve somewhat he thinks after he was started on Jardiance. Unfortunately have to stop the Jardiance as he has recurring symptoms of UTI and a concerning urinalysis done back in October. Stop Jardiance Starting hydrochlorothiazide as above Follow-up in 6 weeks, will try to add some Aldactone at that time. Coronary artery disease invo lving ione coronary artery of ione heart without angina pectoris 06/02/2017 Overview (11/28/2017): 04/2015 PCI GIA Cfx; GIA LOUISE Assessment & Plan (01/17/2025 1:25 PM EDT): 04/2015 PCI drug-eluting stent circumflex; GIA LOUISE Currently denying any anginal symptoms however he does not really exert himself. Finding a lot of difficulty getting the motivation to get out of the house so he is consequently pretty sedentary he says. He has nuclear stress test in August 2023 did not show any ischemia. Continue aspirin 81 mg daily Continue rosuvastatin 40 mg daily We did discuss the importance of engaging in regular cardiovascular exercise, encouraged him to at least try getting out of his house once a day and going for a walk. Unclear if there is some untreated underlying depression, he had a significant lack of motivation to leave his house he says. Assessment & Plan (11/11/2024 2:36 PM EDT): 04/2015 PCI drug-eluting stent circumflex; GIA LOUISE Currently denying any typical anginal symptoms. He does have persistent exertional dyspnea which had improved somewhat after being started on Jardiance which is now being stopped due to UTI. He did have a nuclear stress test 09/03/2023 which did not show any ischemia Continue aspirin 81 mg daily Continue rosuvastatin 40 mg daily (LDL goal less than 70) Lab Results Component Value Date CHOL 141 10/26/2024 HDL 60 10/26/2024 LDL 60 10/26/2024 TRIG 104 10/26/2024 CHOLHDL 2.4 (L) 10/26/2024 Assessment & Plan (05/24/2020 4:40 PM EST): 04/2015 PCI drug-eluting stent circumflex; GIA LOUISE He continues to deny chest pain, shortness of breath, palpitations. He reports that he feels well. He does not check his blood pressures at home but today in the office high got a blood pressure of 140/70. He continues to take aspirin 81 mg daily, metoprolol 25 mg daily. He does have some mild edema bilaterally but nothing significant. He reports that he has had scrotal edema for over a year, and he was recommended to see his PCP for management. Assessment & Plan (12/01/2019 3:41 PM EDT): No concerning symptoms. Assessment & Plan (06/01/2019 4:21 PM EST): No angina 4 years out. Assessment & Plan (11/25/2018 4:53 PM EDT): No significant cardiac symptoms. Assessment & Plan (05/20/2018 4:42 PM EST): No angina. Medications appropriate. Assessment & Plan (12/02/2017 3:28 PM EDT): No evidence of recurrence. He has no angina. Medications are fine. He needs to be more active. Assessment & Plan (06/02/2017 3:32 PM EST): He is now 2 years out from his intervention. No angina. Essential hypertension 06/02/2017 Assessment & Plan (01/17/2025 1:21 PM EDT): Blood pressure well-controlled here in the office today on current medications which will be continued without change Assessment & Plan (11/11/2024 2:36 PM EDT): Blood pressure 158/76 here in the office today. Start hydrochlorothiazide 25 mg daily Recheck BMP in a few weeks Continue his other current antihypertensives without change Assessment & Plan (05/24/2020 4:39 PM EST): -Her blood pressure in the office today was 162/68. Blood pressure was rechecked in 40/70. He continues to take losartan 100 mg daily, Toprol 25 mg daily, he also takes an aspirin 81 mg daily. Assessment & Plan (12/01/2019 3:41 PM EDT): Blood pressure is fine today. I have asked him to bring his home monitor to his next visit and be sure it is accurate. I have then suggested that he check his blood pressure before going to sleep a couple times a week and to report them if they are consistently over 140. Assessment & Plan (06/01/2019 4:26 PM EST): Moderately elevated today. He has changed his medications to nighttime dosing. They are pretty much 24-hour medications so he should make a major deal but his blood pressure was elevated today and was at least 30 points better 6 months ago. Darryn is I am sure you are aware, is somewhat anxious and may be a contributor but he is also put on considerable weight. He is agreed to get a blood pressure monitor and to check this at least a couple times a week and call me if he is not consistently under 130. He is not sure of his dosing. If he is on losartan 50 and his pressure is up I would push it to 100 but if he is already at 100 and I would probably add HCTZ. Assessment & Plan (11/25/2018 4:54 PM EDT): Well-controlled on present therapy. I do not believe his mild edema is related to his medications. He has put on some weight and is very sedentary. I told him to watch salt in the try to keep his legs elevated and to let me know if it gets worse. Assessment & Plan (05/20/2018 4:43 PM EST): Elevated today and I have increased his losartan to 100 mg a day. I will have labs drawn in several months prior to his next appointment. Assessment & Plan (12/02/2017 3:29 PM EDT): Controlled on present therapy. Assessment & Plan (06/02/2017 3:33 PM EST): Fair control today. No medication changes. Mixed hyperlipidemia 06/02/2017 Assessment & Plan (05/24/2020 4:38 PM EST): Last LDL was 79. He can continue to take lovastatin 40 mg daily Assessment & Plan (12/01/2019 3:42 PM EDT): Good profile with LDL in the 70s and HDL in the 50s. Triglycerides were 82. Renal function is normal. LFTs are fine although he has a very slight elevation of his transaminases. He denies alcohol. Assessment & Plan (06/01/2019 4:26 PM EST): Good profile with an LDL of 69, HDL 52 and triglycerides 114. LFTs are fine. Creatinine is 0.7 with a BUN of 13 and a potassium of 4.2. Assessment & Plan (11/25/2018 4:54 PM EDT): Remains on his statin. No recent labs forwarded but I understand that a was sent to his primary physician. I believe this Dr. Moctezuma and if he sees this note and can send me a copy of those labs I would appreciate it Assessment & Plan (05/20/2018 4:42 PM EST): Lipid profile is fine with an LDL of 69, HDL 57 and triglycerides 133. Creatinine normal at 0.8. Assessment & Plan (12/02/2017 3:29 PM EDT): Labs drawn in September include an LDL of 61 with an HDL of 62 and triglycerides 125. Hepatic and metabolic profiles are fine. Assessment & Plan (06/02/2017 3:33 PM EST): Remains on high-dose rosuvastatin. He has not had his lipids drawn but will do so sometime in the next several months. Encounters Date Type Department Care Team Description 01/24/2025 Refill [facility] [address], [address] [place] [address] Shin Sutton MD Medication Refill 01/17/2025 1:00 PM EDT Office Visit [facility] [address], [address] [place] [address] Janes Carlos CNP Coronary artery disease involving ione coronary artery of ione heart without angina pectoris (Primary Dx); Essential hypertension; Diastolic dysfunction 01/17/2025 Refill [facility] [address], [address] [place] [address] Shin Sutton MD Medication Refill 01/13/2025 9:43 AM EDT - 01/13/2025 11:59 PM EDT Hospital Encounter [facility] [address] [place] [address] Ember Louis MD Discharge Disposition: Home or Self Care 01/13/2025 Transcribe Orders [facility] [address] [place] [address] Ember Louis MD Mixed hyperlipidemia (Primary Dx); Urinary tract infection without hematuria, site unspecified; Diabetes mellitus without complication; Hypertension, unspecified type from Last 3 Months Immunizations Immunization Administration Dates Next Due Influenza Trivalent Adjuvanted Preservative free IM 04/18/2017 Pneumococcal conjugate PCV13 04/18/2017 Family History Medical History Relation Comments Cancer Father 2 Cancer Mother 2 Relation Status Comments Father 1 Father 2 Mother 1 Mother 2 Social History Tobacco Use Types Packs/Day Years [...] Orientation Straight 10/24/2023 7: 15 PM EDT Last Filed Vital Signs Vital Sign Reading Time Taken Comments Blood Pressure 130/64 01/17/2025 12:39 PM EDT Pulse 68 01/17/2025 12:39 PM EDT Temperature 37.1 C (98.8 F) 04/05/2021 4:39 PM EDT Respiratory Rate 22 04/05/2021 4:39 PM EDT Oxygen Saturation 94% 01/17/2025 12:39 PM EDT Inhaled Oxygen Concentration - - Weight 126.6 kg (279 lb) 01/17/2025 12:39 PM EDT Height 177.8 cm (5' 10 ) 01/17/2025 12:39 PM EDT Body Mass Index 40.03 01/17/2025 12:39 PM EDT Plan of Treatment Upcoming Encounters Date Type Department Care Team (Late st Contact Info) Description 07/29/2025 1:40 PM EST Office Visit [facility] [address] [place] [address] [address] Floor, [address] [place] [address] Shin Sutton MD [address] [facility], [address] [place] [id number] [email or web address] Health Maintenance Due Date Last Done Comments DEPRESSION SCREENING 1957 HEPATITIS C SCREENING 1963 ZOSTER VACCINES (1 of 2) 1996 RSV VACCINE (1 - 1-dose 75+ series) 2021 DIABETIC EYE EXAM 12/23/2023 COVID-19 VACCINE ( season) 2024 04/30/2021, 08/14/2020, 07/24/2020 INFLUENZA VACCINE (#1) 2025 7, 04/18/2017, 05/13/2016 HEMOGLOBIN A1C 07/16/2025 01/13/2025, 10/06, 07/22/2024, Additional history exists BLOOD PRESSURE 07/20/2025 01/17/2025 CREATININE LEVEL 01/13/2026 01/13/2025, , 07/22/2024, Additional history exists POTASSIUM LEVEL 01/13/2026 01/13/2025, 10/06, 07/22/2024, Additional history exists Adult Td,Tdap Booster 10/01/2027 09/30/2017 PNEUMOCOCCAL VACCINES (50+ years) Completed 09/30/2017, 04/18/2017 SMOKING STATUS SCREENING (Once After 26 Yrs) Completed 01/17/2025 HEPATITIS A VACCINES Aged Out No long er eligible based on patient's age to complete this topic HIB VACCINES Aged Out No longer eligi ble based on patient's age to complete this topic MENINGOCOCCAL VACCINES (ACWY) Aged Out No longer eligible based on patient's age to complete this topic MENINGOCOCCAL VACCINES (B) Aged Out N o longer eligible based on patient's age to complete this topic Medical Devices Not on file Procedures Procedure Name Priority Date/Time Associated Diagnosis Comments LIPID PANEL Routine 01/13/2025 10:26 AM EDT Mixed hyperlipidemia Urinary tract infection without hematuria, site unspecified Diabetes mellitus without complication Hypertension, unspecified type HEMOGLOBIN A1C Routine 01/13/2025 10:26 AM EDT Mixed hyperlipidemia Urinary tract infection without hematuria, site unspecified Diabetes mellitus without complication Hypertension, unspecified type URINALYSIS WITH SEDIMENT Routine 01/13/2025 10:26 AM EDT Mixed hyperlipidemia Urinary tract infection without hematuria, site unspecified Diabetes mellitus without complication Hypertension, unspecified type TSH WITH REFLEX Routine 01/13/2025 10:26 AM EDT Mixed hyperlipidemia Urinary tract infection without hematuria, site unspecified Diabetes mellitus without complication Hypertension, unspecified type COMPREHENSIVE METABOLIC PANEL Routine 01/13/2025 10:26 AM EDT Mixed hyperlipidemia Urinary tract infection without hematuria, site unspecified Diabetes mellitus without complication Hypertension, unspecified type CBC Routine 01/13/2025 10:26 AM EDT Mixed hyperlipidemia Urinary tract infection without hematuria, site unspecified Diabetes mellitus without complication Hypertension, unspecified type URINE CULTURE Routine 01/13/2025 10:26 AM EDT Mixed hyperlipidemia Urinary tract infection without hematuria, site unspecified Diabetes mellitus without complication Hypertension, unspecified type from Last 3 Months Results * (ABNORMAL) Urine Culture (01/13/2025 10:26 AM EDT) Special Requests None 01/13/2025 10:27 AM EDT [facility] Urine Culture >100,000 colony forming units per mL MIXED DENA (3 OR MORE COLONY TYPES) Culture indicates contamination . Please resubmit if necessary.(A) 01/15/2025 10:49 AM EDT [facility] Urine (Urine) 01/13/2025 10: 26 AM EDT 01/13/2025 10:35 AM EDT Comment:URINE us Ember Louis MD MICROBIOLOGY - GENERAL ORDER DONOVAN Final Result Performing Organization Address [facility] Co de Phone Number [address] [address] * (ABNORMAL) URINALYSIS WITH SEDIMENT (01/13/2025 10:26 AM EDT) WBC 0-4(A) NONE SEEN /hpf [facility] RBC 0-2(A) NONE SEEN /hpf [facility] URINE EPITHELIAL 0-4(A) NONE SEEN [facility] MUCUS 2+(A) NONE SEEN /hpf [facility] BACTERIA Trace(A) NONE SEEN /hpf [facility] CAST 0-2 [facility] Comment:HYALINE CAST COLOR Yellow Yellow [facility] CLARITY Clear [facility] GLUCOSE Negative Negative [facility] BILI Negative Negative [facility] KETONES Trace(A) Negative [facility] SPECIFIC GRAVITY >1.030 1.005 - 1.030 [facility] BLOOD Negative Negative [facility] PH 6.0 5.0 - 8.0 [facility] Protein-UA 1+(A) Negative [facility] NITRITE Negative Negative [facility] Leukocyte esterase, ur Negative Negative [facility] Urine (Urine) 01/13/2025 10: 26 AM EDT 01/13/2025 10:34 AM EDT Ember Louis MD URINE ORDERABLES Final Resul t Performing Organization Address City/[facility]/ZIP Co de Phone Number [address] [address] * (ABNORMAL) Comprehensive metabolic panel (01/13/2025 10:26 AM EDT) SODIUM 138 133 - 146 mmol/L [facility] POTASSIUM 4.5 3.3 - 5.1 mmol/L [facility] Comment:Specimen slightly he molyzed, result may be falsely elevated. CHLORIDE 100 96 - 108 mmol/L [facility] CO2 27 21 - 35 mmol/L [facility] BUN 11 6 - 19 mg/dL [facility] CREATININE 0.70 0.5 - 1.5 mg/dL [facility] GLUCOSE 109(H) 70 - 99 mg/dL [facility] ALBUMIN 3.8(L) 3.9 - 4.8 g/dL [facility] TOTAL PROTEIN 7.2 6.5 - 8.0 g/dL [facility] CALCIUM 9.4 8.4 - 10.3 mg/dL [facility] ALKALINE PHOSPHATASE 89 39 - 117 U/L [facility] TOTAL BILIRUBIN 0.6 0.0 - 1.2 mg/dL [facility] AST 44(H) 0 - 37 U/L [facility] ALT 31 0 - 40 U/L [facility] GLOBULIN 3.4 1 - 4.8 g/dL [facility] EGFR 94 >59 mL/min/1.7 3m2 [facility] Comment:Estimated glomerular filtration rate calculated using the CKD-EPI refit equation. ANION GAP 16 10 - 20 mmol/L [facility] Blood 01/13/2025 10:2 6 AM EDT 01/13/2025 10:34 AM EDT us Ember Louis MD LAB BLOOD ORDERABLES Final R esult [facility] [address] [place] [address] * TSH with reflex (01/13/2025 10:26 AM EDT) TSH 2.74 0.27 - 4.20 uIU/mL [facility] Blood 01/13/2025 10:2 6 AM EDT 01/13/2025 10:34 AM EDT us Ember Louis MD LAB BLOOD ORDERABLES Final R esult Performing Organization Address City/[facility]/ZIP Co de Phone Number [address] [address] * (ABNORMAL) CBC (01/13/2025 10:26 AM EDT) WBC 8.42 4.00 - 11.00 K/uL [facility] RBC 5.38 4.50 - 5.90 M/uL [facility] HGB 16.3 13.5 - 17.5 g/dL [facility] HCT 50.2 41.0 - 53.0 % [facility] PLT 147(L) 150 - 450 K/uL [facility] MCV 93.3 80.0 - 100.0 fL [facility] MCH 30.3 27.0 - 31.0 pg [facility] MCHC 32.5 32.0 - 36.0 g/dL [facility] RDW 14.3 11.5 - 14.5 % [facility] MPV 9.9 8.4 - 12.0 fL [facility] NRBC 0.00 0.00 /100 WBCs [facility] ABSOLUTE NRBC 0.00 0.00 K/uL [facility] Blood 01/13/2025 10:2 6 AM EDT 01/13/2025 10:34 AM EDT us Ember Louis MD LAB BLOOD ORDERABLES Final R esult [address] [address] * (ABNORMAL) Hemoglobin A1c (01/13/2025 10:26 AM EDT) HEMOGLOBIN A1C 6.5(H) 4.3 - 5.8 % [facility] Blood 01/13/2025 10:2 6 AM EDT 01/13/2025 10:35 AM EDT us Ember Louis MD LAB BLOOD ORDERABLES Final R esult Performing Organization Address City/[facility]/ZIP Co de Phone Number [address] [address] * (ABNORMAL) Lipid panel (01/13/2025 10:26 AM EDT) HDL 55 mg/dL [facility] Comment: Interpretation <40 mg/dL: Low HDL cholesterol (major risk factor for CHD) Greater than or equal to 60 mg/dL: High HDL cholesterol ( negative risk factor for CHD) HDL - cholesterol is affected by a number of factors, e.g. smoking, excerise, hormones, sex and age. CHOLESTEROL 133 0 - 240 mg/dL [facility] TRIGLYCERIDES 81 30 - 160 mg/dL [facility] LDL 62 50 - 129 mg/dL [facility] Comment: LDL levels in terms of risk for coronary heart disease: <100 mg/dL: Optimal 100-129 mg/dL: Near or above optimal 130-159 mg/dL: Borderline high 160-189 mg/dL: High >190 mg/dL: Very High CARDIAC RISK RATIO 2.4(L) 3.4 - 5.0 [facility] Blood 01/13/2025 10:2 6 AM EDT 01/13/2025 10:35 AM EDT us Ember Louis MD LAB BLOOD ORDERABLES Final R esult Performing Organization Address City/[facility] Co de Phone Number [address] [address] from Last 3 Months Insurance [facility] [employer] SUPPLEMENT MEDICARE PART A & B [facility] [employer] SUPPLEMENT MEDICARE PART A & B [facility] [employer] MEDEX SUPPLEMENT MEDICARE PART A & B [facility] [employer] MED[employer] SUPPLEMENT MEDICARE PART A & B [facility] [employer] SUPPLEMENT MEDICARE PART A & B [facility] [employer] SUPPLEMENT MEDICARE PART A & B [employer] [facility] [employer] SUPPLEMENT MEDICARE PART A & B [employer] [facility] [employer] MEDEX SUPPLEMENT MEDICARE PART A & B [facility] [employer] SUPPLEMENT MEDICARE PART A & B Care Teams Household Coordinator Relationship Specialty Start Date End Date Genaro Castro MD [address] [place] [address] [address] [place] [address] PCP - General Internal Medicine 05/28/23 Tien Josue MD [address] [place] [phone] [email or web address] LMR Provider 04/24/17 Additional Source Comments The information contained in this document represents components of the legal health record. It is not the complete legal health record.[facility]
--- OUTSIDE RECORDS SUMMARY | 2025-03-04 15:02 | XMS_ITS | Encounter Summary ---
Author Organization [facility] Address [address] [place] [phone] Phone Care Team Providers Care Canvas Cutter Hand Name Role Phone Tien Josue MD Unavailable [phone] Genaro Castro MD Primary Care Provider Encounter Details Date Type Department Care Team (Late st Contact Info) Description 10/31/2023 Procedure Pass Echo [facility] [address] [place] [address] Social History Tobacco Use Types Packs/Day Years [...] Description 07/29/2025 1:40 PM EST Office Visit [facility] [address] [facility] [address]rd Floor, [address] [place] [address] Shin Sutton MD [address] [facility], [address] [place] [address] [email or web address] documented as of this encounter Visit Diagnoses Not on filedocumented in this encounter Care Teams Canvas Cutter Hand Relationship Specialty Start Date End Date Genaro Castro MD [address] [place] [id number] PCP - General Internal Medicine 05/28/23 Tien Josue MD [address] [place] [phone] [email or web address] Historical LMR Provider 04/24/17 documented as of this encounter Additional Source Comments The information contained in this document represents components of the legal health record. It is not the complete legal health record.[facility]
--- NOTE | 2025-03-04 15:27 | A.OFFPC_ITS ---
Vital Signs 03/04/25 15:40 Height 5 ft 10 in Weight 128.367 kg BMI 40.6 BP 150/60 H Pulse 65 Pulse Source Pulse Oximeter Temp 98.6 F Temp Source Temporal Artery Scan Pulse Oximetry (%) 95 Oxygen Delivery Method Room Air Intake Visit Reasons: 3 Month F/U Yoga Coordinator Required: No Accompanied by: Self / Same As Patient Allergies bee pollen (bee stings) Allergy (Mild, Verified 03/04/25 15:32) Hives Medication List - Last Reconciled 03/04/25 by CONNIE Cunningham allopurinol 100 mg PO BID aspirin 81 mg PO DAILY glipizide ER 5 mg PO BID hydrochlorothiazide 25 mg PO DAILY losartan 100 mg PO DAILY melatonin mg PO DAILY PRN metformin ER 500 mg PO DAILY metoprolol succinate ER 25 mg PO DAILY nystatin 1 appl topical TID PRN rosuvastatin (Crestor) 40 mg PO DAILY tamsulosin 0.4 mg PO DAILY trazodone 25 mg (1/2 x 50 mg) PO BEDTIME Tobacco use date assessed: 12/02/24 Dental Screening Dental Screen Date: 12/02/24 HPI HPI Comments History of Present Illness Details The patient is a 79 year old male with past medical history of diabetes, CAD, htn, hld, insomnia, anxiety/depression, BPH presenting for follow up. DM: Last A1C 6.3% in October. On metformin 750mg daily. Had been placed on jardiance by cardiology. Trigone off of Jardiance by cardiology. Does still continue to have urinary symptoms. CV: Follows with Dr House. On crestor, losartan. Denies chest pain. No exertional dyspnea but excessive exertional fatigue. He has chronic tremor-says this has been worked up by neurology in the past and he has been told essential. He seems to have both essential and resting tremulousness. He does have cogwheel rigidity and tremor on exam. Has been referred to Neurology BPH: following with Dr. Lucia Insomnia: on trazodone 25mg daily Concerns: Intertriginous candidiasis-present for years. Unable to use the nystatin powder. Has been using hydrocortisone cream without any effect. Previously followed with Dermatology. memory since childhood Health maintenance: No longer undergoing colonoscopies ROS: see hpi EXAM: Constitutional - Awake and Alert, No apparent distress Eyes - PERRL Cardiovascular - S1S2, RRR, No edema Respiratory - Normal lung expansion, Normal respiratory effort, No respiratory distress, CTA bilaterally Extremities - no calf tenderness bilaterally, no swelling Skin - Warm/Dry . Tinea cruris right axilla. Intertriginous candidiasis under breasts and in groin Neurological - Alert & oriented x3 Psychological - Appropriate affect [facility] Medical History (Updated 03/04/25 @ 17:29 by CONNIE Cunningham) Diabetes Hypertension Major depress, part remis Intertriginous candidiasis Family History Mother Ovarian cancer Father Prostate cancer Social History Housing: Apartment Patient Tobacco Use Status: Never used Tobacco e-Cigarette/Vaping Use: Never Used service: No Current occupational status: retired Cognitive needs: No Hearing needs: No Vision needs: Yes (reading glasses) Questionnaire Thrive Questionnaire Date Thrive assessed: 12/02/24 YAMILEX-7 AMB Questionnaire YAMILEX-7 Date YAMILEX - 7 assessed: 12/02/24 Source: Developed by Drs. Abdulkadir Stokes, Lary Clark, Merrill Altamirano and colleagues, with an educational sushant from [employer]. Physical exam (Primary Care) Vital Signs: Last Vital Signs Temp 98.6 F 03/04/25 15:40 Pulse 65 03/04/25 15:40 BP 150/60 H 03/04/25 15:40 Pulse Ox 95 03/04/25 15:40 Oxygen Delivery Method Room Air 03/04/25 15:40 BMI result Body Mass Index 40.6 Tobacco/Smoking Status: Tobacco use Status Tobacco use date assessed 12/02/24 03/04/25 15:29 Patient Tobacco Use Status Never used Tobacco 03/04/25 15:29 e-Cigarette/Vaping Use Never Used 03/04/25 15:29 Thrive Assessment: Date of Thrive Assessment Date Thrive assessed 12/02/24 03/04/25 15:29 Coding Level of Care Code Est Pt Level 4 (79809) Complex EM visit Add On G2211 Diagnoses Intertriginous candidiasis B37.2 Tinea cruris B35.6 Primary hypertension I10 Hypertension type: primary hypertension Type 2 diabetes mellitus without complication, without long-term current use of insulin E11.9 Diabetes mellitus type: type 2 Diabetes mellitus long term care phlebotomist insulin use: without group home use Diabetes mellitus complication status: without complication Assessment & Plan Assessment & Plan (1) Intertriginous candidiasis: Code(s): B37.2 - Candidiasis of skin and nail Category: Medical Plan: Nystatin cream. Counseled on the importance of hygiene (2) Tinea cruris: Code(s): B35.6 - Tinea cruris Category: Medical Plan: Nystatin cream (3) Hypertension: Code(s): I10 - Essential (primary) hypertension Category: Medical Qualifiers: Hypertension type: primary hypertension Qualified Code(s): I10 - Essential (primary) hypertension Plan: Controlled on recheck. Continue current therapies (4) Diabetes: Code(s): E11.9 - Type 2 diabetes mellitus without complications Category: Medical Qualifiers: Diabetes mellitus type: type 2 Diabetes mellitus group home insulin use: without group home use Diabetes mellitus complication status: without complication Qualified Code(s): E11.9 - Type 2 diabetes mellitus without complications Plan: Last hemoglobin A1c well controlled. Updated hemoglobin A1c ordered. Continue metformin, glipizide. Diabetic diet. Referred to endocrinology at his request Plan Follow-up in the office in 4 months with PCP. Labs to be completed following visit today Orders: Orders Liver Panel Today E11.9 - Type 2 diabetes mellitus without complications, F32.4 - Major depressive disorder, single episode, in partial remission, I10 - Essential (primary) hypertension, N39.0 - Urinary tract infection, site not specified Basic Metabolic Panel Today E11.9 - Type 2 diabetes mellitus without complications, F32.4 - Major depressive disorder, single episode, in partial remission, I10 - Essential (primary) hypertension, N39.0 - Urinary tract infection, site not specified Complete Blood Count Auto Diff Today E11.9 - Type 2 diabetes mellitus without complications, F32.4 - Major depressive disorder, single episode, in partial remission, I10 - Essential (primary) hypertension, N39.0 - Urinary tract infection, site not specified Lipid Panel Today E11.9 - Type 2 diabetes mellitus without complications, F32.4 - Major depressive disorder, single episode, in partial remission, I10 - Essential (primary) hypertension, N39.0 - Urinary tract infection, site not specified UA CC w/rflx Micro + Cult Today E11.9 - Type 2 diabetes mellitus without complications, F32.4 - Major depressive disorder, single episode, in partial remission, I10 - Essential (primary) hypertension, N39.0 - Urinary tract infection, site not specified Referrals Endocrinology Referral E11.9 - Type 2 diabetes mellitus without complications Medications: New nystatin 1 appl topical TID 30 grams 6RF
[2025-03-04 15:40] VITALS: BP 150/60; PULSE 65; TEMP 37; O2SAT 95; BMI 40.6
== END 2025-03-04 16:24 | disposition home or self-care (01) ==
LOC: HO.HMCHD 15:00
PROVIDERS: PCP Internal Medicine; Visit Provider Physician Assistant
DX: B37.2 Candidiasis of skin and nail (principal); B35.6 Tinea cruris; I10 Essential (primary) hypertension; E11.9 Type 2 diabetes mellitus without complications

== ENCOUNTER → 2025-03-04 15:00 | Outpatient (BNVA) | payer MEDICARE, SELFPAY | PROVIDERS: PCP Internal Medicine; Visit Provider Internal Medicine | DX: B37.2 Candidiasis of skin and nail (principal); B35.6 Tinea cruris; I10 Essential (primary) hypertension; E11.9 Type 2 diabetes mellitus without complications; G47.00 Insomnia, unspecified; Z79.84 Long term (current) use of oral hypoglycemic drugs; Z79.899 Other long term (current) drug therapy | CPT/HCPCS: 99212 ==

== ENCOUNTER 2025-03-15 13:35 | Outpatient (REF) | payer MEDICARE, SELFPAY ==
[2025-03-15 13:58] LABS: MANUAL DIFF FLAG NO
[2025-03-15 14:45] LABS: Hematocrit 50.0 % (42.0-52.0); Hemoglobin 16.5 g/dl (14.0-18.0); Imm Gran Abs Auto 0.04 X10*3/uL (0.00-0.03); Imm Gran Pct Auto 0.4 % (0.0-0.4); Lymphocytes Absolute Auto 1.8 X10*3/uL (1.2-4.9); Mean Corpuscular HGB Conc 33.0 g/dl (31.0-36.0); Mean Corpuscular Hemoglobin 30.7 pg (27.0-33.0); Mean Corpuscular Volume 93.1 fL (80.0-98.0); NRBC Abs Auto 0.000 X10*3/uL (0.0-0.012); NRBC Pct Auto 0.0 /100WBC (0.0-0.2); Platelet Count 157 X10*3/uL (160-400); Red Blood Count 5.37 X10*6/uL (4.60-5.80); White Blood Count 8.9 X10*3/uL (4.8-10.8)
[2025-03-15 14:53] LABS: Hemoglobin A1C 202.9295 umol/L; Total Hemoglobin (HGBA1C) 4147.2715 umol/L
[2025-03-15 15:23] LABS: Alanine Aminotransferase 36 U/L (0-40); Albumin Level 4.3 g/dL (3.5-5.0); Alkaline Phosphatase 96 U/L (39-117); Anion Gap 12 (12-20); Aspartate Amino Transferase 36 U/L (5-37); Blood Urea Nitrogen 13 mg/dL (9-16); Calcium 9.3 mg/dL (8.4-10.2); Carbon Dioxide 27 mmol/L (22-29); Chloride 107 mmol/L (96-108); Cholesterol 132 mg/dL (<200); Estimated Glomerular Filt Rate > 60; HDL Cholesterol 59 mg/dL (>40); Potassium 4.2 mmol/L (3.3-5.1); Sodium 142 mmol/L (135-145); Total Protein 7.6 g/dL (6.5-8.0); Triglycerides 96 mg/dL (<150)
[2025-03-15 15:30] LABS: Appearance Urine Clear; Glucose Urine UA Negative (Negative); PH 5.0 (5.0-9.0); Specific Gravity - Urine 1.025 (1.005-1.025); UMIC TRIGGER UACC YES
[2025-03-15 15:43] LABS: UACC Culture Trigger YES
--- OUTSIDE RECORDS SUMMARY | 2025-03-15 16:09 | XMS_ITS | Encounter Summary ---
Author Organization [facility] Address [address] [place] [address] Phone Care Team Providers Care Etcher Apprentice Name Role Phone Tati Arzola Aldo LIGHT BULB REPLACER Unavailable Anam Mcknight MD Unavailable Shin Sutton MD Unavailable Castro Clay DO Unavailable [phone] Aydin Cronin MD Unavailable Keegan Acevedo MD Unavailable [phone] Tien Josue MD Unavailable [phone] Wanda Morrison MD Primary Care Provider [phone] Ed Benton MD Primary Care Provider Genaro Castro MD Primary Care Provider Encounter Details Date Type Department Care Team (Late st Contact Info) Description 10/22/2017 Procedure Pass [facility] Admitting Dept Virtual Department [address] [place] [address] Social History Tobacco Use Types Packs/Day [...] Upcoming Encounters Date Type Department Care Team ([facility] Contact Info) Description 07/29/2025 1:40 PM EST Office Visit [facility] 3rd Floor, [address] [place] [address] Shin Sutton MD [address] [facility], [address] [place] [address] [email or web address] documented as of this encounter Visit Diagnoses Not on filedocumented in this encounter Additional Health Concerns Infection Onset Date Last Indicated Resolved Time CoV-Risk 04/05/2021 04/05/2021 04/15/2021 1:25 AM EDT documented as of this encounter Care Teams Etcher Apprentice Relationship Specialty Start Date End Date Wanda Morrison MD [address] [place] [address], [address] [place] [phone] [email or web address] PCP - General Family Medicine 10/22/17 05/19/18 Ed Benton MD [address] [place] [address] PCP - General Internal Medicine 05/20/18 05/27/23 Genaro Castro MD [address] [place] [address] Dr RAMÍREZ [address] [place] [address] PCP - General Internal Medicine 05/28/23 Tati Arzola, BRITTANY [address] [address] [email or web address] Historical LMR Provider 04/24/1707/14/21 Anam Mcknight MD [address] [place] [address] [email or web address] Historical LMR Provider 04/24/17 07/14/21 Shin Sutton MD [address] [facility], [address] [place] [address] [email or web address] Historical LMR Provider 04/24/17 07/14/21 Castro Clay DO [address] [place] [address] [facility], [place] [address] [email or web address] Historical LMR Provider 04/24/17 07/14/21 Aydin Cronin MD [address] [place] [address] [email or web address] Historical LMR Provider 04/24/17 2 Keegan Acevedo MD [address] [place] [address] Historical LMR Provider 04/24/17 2 Tien Josue MD [address] [place] [address] [email or web address] Historical LMR Provider 04/24/17 documented as of this encounter Additional Source Comments The information contained in this document represents components of the legal health record. It is not the complete legal health record.[facility]
--- OUTSIDE RECORDS SUMMARY | 2025-03-15 16:09 | XMS_ITS | Clinical Summary ---
Author Organization [facility] Address [address] [place] [address] Phone Care Team Providers Care Iv Rn Name Role Phone Tien Josue MD Unavailable [phone] Genaro Castro MD Primary Care Provider Allergies Active Allergy Reactions Criticality Noted Date Comments Enalapril 02/20/2022 Tbucjos-Xxj-Cwo Reductase Inhibitors Myalgia Medium 06/02/2017 Tolerates rosuvastatin [...] that time. Coronary artery disease invo lving cher[place]ae [place] coronary artery of [place] heart without angina pectoris 06/02/2017 Overview (11/28/2017): [...] Type Department Care Team Description 01/24/2025 Refill [facility] [address] Floor, [address] [place] [address] Shin Sutton MD Medication Refill 01/17/2025 1:00 PM EDT Office Visit [facility] [address] Floor, [address] [place] [address] Janes Carlos CNP Coronary artery disease involving cher-ae [place] coronary artery of cher[place]ae [place] heart without angina pectoris (Primary Dx); Essential hypertension; Diastolic dysfunction 01/17/2025 Refill [facility] [address] 3rd Floor, [address] [place] [address] Shin Sutton MD Medication Refill 01/13/2025 9:43 AM EDT - 01/13/2025 11:59 PM EDT Hospital Encounter [facility] [address] [place] [address] Ember Louis MD Discharge Disposition: Home or Self Care 01/13/2025 Transcribe Orders [facility] [address] [place] [address] Ember Louis MD Mixed hyperlipidemia (Primary Dx); [...] Description 07/29/2025 1:40 PM EST Office Visit [facility] [address] [place] [address] 3rd Floor, [address] [place] [address] Shin Sutton MD [address] [facility], [address] [place] [address] [email or web address] Health Maintenance Due Date Last Done [...] Special Requests None 01/13/2025 10:27 AM EDT [facility] Urine Culture >100,000 colony forming units per mL MIXED DENA (3 OR MORE COLONY TYPES) Culture indicates contamination . Please resubmit if necessary.(A) 01/15/2025 10:49 AM EDT [facility] Urine (Urine) 01/13/2025 10: 26 AM EDT 01/13/2025 10:35 AM EDT Comment:URINE us Ember Louis MD MICROBIOLOGY - GENERAL ORDER DONOVAN Final Result Performing Organization Address [facility] Co de Phone Number [address] [address] * (ABNORMAL) URINALYSIS WITH SEDIMENT (01/13/2025 10:26 AM EDT) WBC 0-4(A) NONE SEEN /hpf [facility] RBC 0-2(A) NONE SEEN /hpf [facility] URINE EPITHELIAL 0-4(A) NONE SEEN [facility] MUCUS 2+(A) NONE SEEN /hpf [facility] BACTERIA Trace(A) NONE SEEN /hpf [facility] CAST 0-2 [facility] Comment:HYALINE CAST COLOR Yellow Yellow [facility] CLARITY Clear [facility] GLUCOSE Negative Negative [facility] BILI Negative Negative [facility] KETONES Trace(A) Negative [facility] SPECIFIC GRAVITY >1.030 1.005 - 1.030 [facility] BLOOD Negative Negative [facility] PH 6.0 5.0 - 8.0 [facility] Protein-UA 1+(A) Negative [facility] NITRITE Negative Negative [facility] Leukocyte esterase, ur Negative Negative [facility] Urine (Urine) 01/13/2025 10: 26 AM EDT 01/13/2025 10:34 AM EDT Ember Louis MD URINE ORDERABLES Final Resul t Performing Organization Address City/[facility]/ZIP Co de Phone Number [address] [address] * (ABNORMAL) Comprehensive metabolic panel (01/13/2025 10:26 AM EDT) SODIUM 138 133 - 146 mmol/L [facility] POTASSIUM 4.5 3.3 - 5.1 mmol/L [facility] Comment:Specimen slightly he molyzed, result may be falsely elevated. CHLORIDE 100 96 - 108 mmol/L [facility] CO2 27 21 - 35 mmol/L [facility] BUN 11 6 - 19 mg/dL [facility] CREATININE 0.70 0.5 - 1.5 mg/dL [facility] GLUCOSE 109(H) 70 - 99 mg/dL [facility] ALBUMIN 3.8(L) 3.9 - 4.8 g/dL [facility] TOTAL PROTEIN 7.2 6.5 - 8.0 g/dL [facility] CALCIUM 9.4 8.4 - 10.3 mg/dL [facility] ALKALINE PHOSPHATASE 89 39 - 117 U/L [facility] TOTAL BILIRUBIN 0.6 0.0 - 1.2 mg/dL [facility] AST 44(H) 0 - 37 U/L [facility] ALT 31 0 - 40 U/L [facility] GLOBULIN 3.4 1 - 4.8 g/dL [facility] EGFR 94 >59 mL/min/1.7 3m2 [facility] Comment:Estimated glomerular filtration rate calculated using the CKD-EPI refit equation. ANION GAP 16 10 - 20 mmol/L [facility] Blood 01/13/2025 10:2 6 AM EDT 01/13/2025 10:34 AM EDT us Ember Louis MD LAB BLOOD ORDERABLES Final R esult [facility] [address] [place] [address] * TSH with reflex (01/13/2025 10:26 AM EDT) TSH 2.74 0.27 - 4.20 uIU/mL [facility] Blood 01/13/2025 10:2 6 AM EDT 01/13/2025 10:34 AM EDT us Ember Louis MD LAB BLOOD ORDERABLES Final R esult Performing Organization Address City/[facility]/ZIP Co de Phone Number [address] [address] * (ABNORMAL) CBC (01/13/2025 10:26 AM EDT) WBC 8.42 4.00 - 11.00 K/uL [facility] RBC 5.38 4.50 - 5.90 M/uL [facility] HGB 16.3 13.5 - 17.5 g/dL [facility] HCT 50.2 41.0 - 53.0 % [facility] PLT 147(L) 150 - 450 K/uL [facility] MCV 93.3 80.0 - 100.0 fL [facility] MCH 30.3 27.0 - 31.0 pg [facility] MCHC 32.5 32.0 - 36.0 g/dL [facility] RDW 14.3 11.5 - 14.5 % [facility] MPV 9.9 8.4 - 12.0 fL [facility] NRBC 0.00 0.00 /100 WBCs [facility] ABSOLUTE NRBC 0.00 0.00 K/uL [facility] Blood 01/13/2025 10:2 6 AM EDT 01/13/2025 10:34 AM EDT us Ember Louis MD LAB BLOOD ORDERABLES Final R esult [address] [address] * (ABNORMAL) Hemoglobin A1c (01/13/2025 10:26 AM EDT) HEMOGLOBIN A1C 6.5(H) 4.3 - 5.8 % [facility] Blood 01/13/2025 10:2 6 AM EDT 01/13/2025 10:35 AM EDT us Ember Louis MD LAB BLOOD ORDERABLES Final R esult Performing Organization Address [facility]/ZIP Co de Phone Number [address] [address] * (ABNORMAL) Lipid panel (01/13/2025 10:26 AM EDT) HDL 55 mg/dL [facility] Comment: Interpretation <40 mg/dL: Low HDL cholesterol (major risk factor for CHD) Greater than or equal to 60 mg/dL: High HDL cholesterol ( negative risk factor for CHD) HDL - cholesterol is affected by a number of factors, e.g. smoking, excerise, hormones, sex and age. CHOLESTEROL 133 0 - 240 mg/dL [facility] TRIGLYCERIDES 81 30 - 160 mg/dL [facility] LDL 62 50 - 129 mg/dL [facility] Comment: LDL levels in terms of risk for coronary heart disease: <100 mg/dL: Optimal 100-129 mg/dL: Near or above optimal 130-159 mg/dL: Borderline high 160-189 mg/dL: High >190 mg/dL: Very High CARDIAC RISK RATIO 2.4(L) 3.4 - 5.0 [facility] Blood 01/13/2025 10:2 6 AM EDT 01/13/2025 10:35 AM EDT us Ember Louis MD LAB BLOOD ORDERABLES Final R esult Performing Organization Address [facility] Co de Phone Number [address] [address] from Last 3 Months Insurance [facility] MEDEX SUPPLEMENT MEDICARE PART A & B [facility] MEDEX SUPPLEMENT MEDICARE PART A & B [email or web address] MEDEX SUPPLEMENT MEDICARE PART A & B [email or web address] MED[employer] SUPPLEMENT MEDICARE PART A & B [email or web address] MEDEX SUPPLEMENT MEDICARE PART A & B [email or web address] MEDEX SUPPLEMENT MEDICARE PART A & B [email or web address] MEDEX SUPPLEMENT MEDICARE PART A & B [email or web address] MEDEX SUPPLEMENT MEDICARE PART A & B [facility] MEDEX SUPPLEMENT MEDICARE PART A & B Care Teams Iv Rn Relationship Specialty Start Date End Date Genaro Castro MD [address] [place] [address] [address] [place] [address] PCP - General Internal Medicine 05/28/23 Tien Josue MD [address] [place] [address] [email or web address] Historical LMR Provider 04/24/17 Additional Source Comments The information contained in this document represents components of the legal health record. It is not the complete legal health record.[facility]
--- OUTSIDE RECORDS SUMMARY | 2025-03-15 16:09 | XMS_ITS | Encounter Summary ---
Author Organization [facility] Address [address] [place] [address] Phone Care Team Providers Care Book Jacket Cover Machine Operator Name Role Phone Aydin Cronin MD Primary Care Provider [phone] Tati Arzola AGRICULTURAL ECONOMIST Unavailable Anam Mcknight MD Unavailable Shin Sutton MD Unavailable Castro Clay DO Unavailable [phone] Aydin Cronin MD Unavailable Keegan Acevedo MD Unavailable [phone] Tien Josue MD Unavailable [phone] Wanda Morrison MD Primary Care Provider [phone] Ed Benton MD Primary Care Provider Genaro Castro MD Primary Care Provider Encounter Details Date Type Department Care Team (Latest Contact Info) Description 09/15/2017 Transcribe Orders [facility] [address] [place] [address] Johnnie Castillo MD [address] [facility], [address] [place] [address] [email or web address] Numbness (Primary Dx); Weakness Social History [...] Description 07/29/2025 1:40 PM EST Office Visit [facility] [address] [facility] 3rd Floor, [address] [place] [address] Shin Sutton MD [address] [facility], [address] [place], [place] [id number] [email or web address] documented as of this encounter Results * Acetylcholine receptor binding antibody (09/15/2017 4:05 PM EDT) ACH RECEPTOR BIND AB 0.00 <=0.02 nmol/L [facility]PT OF LAB MED AND PAT+ Comment: (NOTE) ADDITIONAL INFORMATION This test was developed and its performance characteristics determined by [facility] in a manner consistent with CLIA requirements. This test has not been cleared or approved by the U.S. Food and Drug Administration. Blood 09/15/2017 4:05 PM EDT 09/16/2017 9:55 AM EDT us Johnnie Castillo MD LAB BLOOD ORDERABLES Final R esult [facility] DPT OF LAB MED AND PAT+ [address] [place] [address] * CPK (creatine kinase) (09/15/2017 4:05 PM EDT) CREATINE KINASE 81 35 - 232 U/L [facility] Blood 09/15/2017 4:05 PM EDT 09/15/2017 6:28 PM EDT us Johnine Castillo MD LAB BLOOD ORDERABLES Final R esult [facility] [address] [place] [address] documented in this encounter Visit Diagnoses Diagnosis Numbness- Primary Disturbance of skin sensation Weakness Other malaise and fatigue documented in this encounter Additional Health Concerns Infection Onset Date Last Indicated Resolved Time CoV-Risk 04/05/2021 04/05/2021 04/15/2021 1:25 AM EDT documented as of this encounter Care Teams Book Jacket Cover Machine Operator Relationship Specialty Start Date End Date Aydin Cronin MD [address] [address] [email or web address] PCP - General 04/24/17 10/21/17 Wanda Morrison MD [address] [place] [address] [address] [place] [phone] [email or web address] PCP - General Family Medicine 10/22/17 05/19/18 Ed Benotn MD [address] [place] [address] PCP - General Internal Medicine 05/20/18 05/27/23 Genaro Castro MD [address] [place] [address] [address] [place] [address] PCP - General Internal Medicine 05/28/23 Tati Arzola, BRITTANY [address] [place] [address] [address] [place] [address] [email or web address] Historical LMR Provider 04/24/1707/14/21 Anam Mcknight MD [address] [place] [address] [email or web address] Historical LMR Provider 04/24/17 07/14/21 Shin Sutton MD [address] [facility] [address] [place] [address] [email or web address] Historical LMR Provider 04/24/17 07/14/21 Castro Clay DO [address] [place] [address] [facility], [place] [address] [email or web address] Historical LMR Provider 04/24/17 07/14/21 Aydin Cronin MD [address] [place] [address] [email or web address] Historical LMR Provider 04/24/17 2 Keegan [place] [address] Historical LMR Provider 04/24/17 2 Tien Josue MD [address] [place] [address] [email or web address] Historical LMR Provider 04/24/17 documented as of this encounter Additional Source Comments The information contained in this document represents components of the legal health record. It is not the complete legal health record.[facility]
--- OUTSIDE RECORDS SUMMARY | 2025-03-15 16:09 | XMS_ITS | Encounter Summary ---
Author Organization [facility] Address [address] [place] [address] [place] [phone] Phone Care Team Providers Care Money Counter Name Role Phone Tien Josue MD Unavailable [phone] Genaro Castro MD Primary Care Provider Encounter Details Date Type Department Care Team (Late st Contact Info) Description 01/13/2025 Transcribe Orders [facility] [address] [place] [address] [place] [address] Ember Louis MD [address] [place] [address] [phone] Mixed hyperlipidemia (Primary Dx); Urinary tract infection [...] Description 07/29/2025 1:40 PM EST Office Visit [facility] [address] [facility] 3rd Floor, [address] [place] [address] Shin Sutton MD 22 [facility], [address] [place] [address] [email or web address] documented as of this encounter Results * (ABNORMAL) CBC (01/13/2025 10:26 AM EDT) WBC 8.42 4.00 - 11.00 K/uL [facility] RBC 5.38 4.50 - 5.90 M/uL [facility] HGB 16.3 13.5 - 17.5 g/dL [facility] HCT 50.2 41.0 - 53.0 % [facility] PLT 147(L) 150 - 450 K/uL [facility] MCV 93.3 80.0 - 100.0 fL [facility] MCH 30.3 27.0 - 31.0 pg [facility] MCHC 32.5 32.0 - 36.0 g/dL [facility] RDW 14.3 11.5 - 14.5 % [facility] MPV 9.9 8.4 - 12.0 fL [facility] NRBC 0.00 0.00 /100 WBCs [facility] ABSOLUTE NRBC 0.00 0.00 K/uL [facility] Blood 01/13/2025 10:2 6 AM EDT 01/13/2025 10:34 AM EDT us Ember Louis MD LAB BLOOD ORDERABLES Final R esult [facility] [address] [place] [address] * (ABNORMAL) Comprehensive metabolic panel (01/13/2025 10:26 AM EDT) SODIUM 138 133 - 146 mmol/L [facility] POTASSIUM 4.5 3.3 - 5.1 mmol/L [facility] Comment:Specimen slightly he molyzed, result may be falsely elevated. CHLORIDE 100 96 - 108 mmol/L [facility] CO2 27 21 - 35 mmol/L [facility] BUN 11 6 - 19 mg/dL [facility] CREATININE 0.70 0.5 - 1.5 mg/dL [facility] GLUCOSE 109(H) 70 - 99 mg/dL [facility] ALBUMIN 3.8(L) 3.9 - 4.8 g/dL [facility] TOTAL PROTEIN 7.2 6.5 - 8.0 g/dL [facility] CALCIUM 9.4 8.4 - 10.3 mg/dL [facility] ALKALINE PHOSPHATASE 89 39 - 117 U/L [facility] TOTAL BILIRUBIN 0.6 0.0 - 1.2 mg/dL [facility] AST 44(H) 0 - 37 U/L [facility] ALT 31 0 - 40 U/L [facility] GLOBULIN 3.4 1 - 4.8 g/dL [facility] EGFR 94 >59 mL/min/1.7 3m2 [facility] Comment:Estimated glomerular filtration rate calculated using the CKD-EPI refit equation. ANION GAP 16 10 - 20 mmol/L [facility] Blood 01/13/2025 10:2 6 AM EDT 01/13/2025 10:34 AM EDT us Ember Louis MD LAB BLOOD ORDERABLES Final R esult [facility] [address] [place] [address] * TSH with reflex (01/13/2025 10:26 AM EDT) TSH 2.74 0.27 - 4.20 uIU/mL [facility] Blood 01/13/2025 10:2 6 AM EDT 01/13/2025 10:34 AM EDT Ember Louis MD LAB BLOOD ORDERABLES Final R esult Performing Organization Address [facility] de Phone Number [address] [address] * (ABNORMAL) URINALYSIS WITH SEDIMENT (01/13/2025 10:26 AM EDT) WBC 0-4(A) NONE SEEN /hpf [facility] RBC 0-2(A) NONE SEEN /hpf [facility] URINE EPITHELIAL 0-4(A) NONE SEEN [facility] MUCUS 2+(A) NONE SEEN /hpf [facility] BACTERIA Trace(A) NONE SEEN /hpf [facility] CAST 0-2 [facility] Comment:HYALINE CAST COLOR Yellow Yellow [facility] CLARITY Clear [facility] GLUCOSE Negative Negative [facility] BILI Negative Negative [facility] KETONES Trace(A) Negative [facility] SPECIFIC GRAVITY >1.030 1.005 - 1.030 [facility] BLOOD Negative Negative [facility] PH 6.0 5.0 - 8.0 [facility] Protein-UA 1+(A) Negative [facility] NITRITE Negative Negative [facility] Leukocyte esterase, ur Negative Negative [facility] Urine (Urine) 01/13/2025 10: 26 AM EDT 01/13/2025 10:34 AM EDT Ember Louis MD URINE ORDERABLES Final Resul t Performing Organization Address [facility] de Phone Number [address] [address] * (ABNORMAL) Urine Culture (01/13/2025 10:26 AM EDT) Special Requests None 01/13/2025 10:27 AM EDT [facility] Urine Culture >100,000 colony forming units per mL MIXED DENA (3 OR MORE COLONY TYPES) Culture indicates contamination . Please resubmit if necessary.(A) 01/15/2025 10:49 AM EDT [facility] Urine (Urine) 01/13/2025 10: 26 AM EDT 01/13/2025 10:35 AM EDT Comment:URINE Ember Louis MD MICROBIOLOGY - GENERAL ORDER DONOVAN Final Result Performing Organization Address City/[facility]/ZIP Co de Phone Number [address] [address] * (ABNORMAL) Hemoglobin A1c (01/13/2025 10:26 AM EDT) HEMOGLOBIN A1C 6.5(H) 4.3 - 5.8 % [facility] Blood 01/13/2025 10:2 6 AM EDT 01/13/2025 10:35 AM EDT us Ember Louis MD LAB BLOOD ORDERABLES Final R esult Performing Organization Address City/[facility] Co de Phone Number [address] [address] * (ABNORMAL) Lipid panel (01/13/2025 10:26 AM EDT) HDL 55 mg/dL [facility] Comment: Interpretation <40 mg/dL: Low HDL cholesterol (major risk factor for CHD) Greater than or equal to 60 mg/dL: High HDL cholesterol ( negative risk factor for CHD) HDL - cholesterol is affected by a number of factors, e.g. smoking, excerise, hormones, sex and age. CHOLESTEROL 133 0 - 240 mg/dL [facility] TRIGLYCERIDES 81 30 - 160 mg/dL [facility] LDL 62 50 - 129 mg/dL [facility] Comment: LDL levels in terms of risk for coronary heart disease: <100 mg/dL: Optimal 100-129 mg/dL: Near or above optimal 130-159 mg/dL: Borderline high 160-189 mg/dL: High >190 mg/dL: Very High CARDIAC RISK RATIO 2.4(L) 3.4 - 5.0 C [facility] Blood 01/13/2025 10:2 6 AM EDT 01/13/2025 10:35 AM EDT us Ember Louis MD LAB BLOOD ORDERABLES Final R esult [facility] [address] [place] [address] documented in this encounter Visit Diagnoses Diagnosis Mixed hyperlipidemia- Primary Urinary tract infection without hematuria, site unspecified Diabetes mellitus without complication Type II or unspecified type diabetes mellitus without mention of complication, not stated as uncontrolled Hypertension, unspecified type documented in this encounter Care Teams Money Counter Relationship Specialty Start Date End Date Genaro Castro MD [address] [place] [address] PCP - General Internal Medicine 05/28/23 Tien Josue MD [address] [place] [phone] [email or web address] LMR Provider 04/24/17 documented as of this encounter Additional Source Comments The information contained in this document represents components of the legal health record. It is not the complete legal health record.[facility]
--- OUTSIDE RECORDS SUMMARY | 2025-03-15 16:09 | XMS_ITS | Encounter Summary ---
Author Organization [facility] Address [address] [address] Phone Care Team Providers Care Pneumatic Riveter Name Role Phone Tien Josue MD Unavailable [phone] Genaro Castro MD Primary Care Provider Reason for Referral * MRI/CAT Scan - Closed Specialty Diagnoses / Procedures Referred By Richard hammer Referred To Contact Radiology Diagnoses Other forms of angina pectoris Procedures NC Myocardial Perfusion Pharmacologic Stress Multiple NC Myocardial Perfusion Exercise Multiple Shin Sutton MD Phone: tel: fax: [email or web address] Referral ID Status Reason Start Date Expiration Date Visits Re quested Visits Authorized [id number] Closed 05/28/2023 1 1 Encounter Details Date Type Department Care Team (Latest Contact Info) Description 08/14/2023 Ancillary Orders [facility] [address] [place] [address] 3rd Floor, [address] [place] [address] Shin Sutton MD [address] [facility], [address] [address] [email or web address] Essential hypertension (Primary Dx); Coronary artery disease involving tanana coronary artery of tanana heart without angina pectoris; Mixed hyperlipidemia; Other [...] Description 07/29/2025 1:40 PM EST Office Visit [facility] [address] [place] [address] 3rd Floor, [address] [place] [address] Shin Sutton MD [address] [place] [address], [address] [address] [email or web address] documented as of this encounter Results * [...] in SPECT format, reconstructed tomographically and compared [id number] in short axis, horizontal long axis and [...] of Tc99m Sestamibi by Iglesia Stokes, the cytotechnologist/histotechnologist. 1. EKG - Baseline EKG showed SR [...] Unspecified essential hypertension Coronary artery disease involving tanana coronary artery of tanana heart without angina pectoris Mixed hyperlipidemia Other forms of angina pectoris documented in this encounter Care Teams Pneumatic Riveter Relationship Specialty Start Date End Date Genaro Castro MD [address] [place] [address] [address] [place] [address] PCP - General Internal Medicine 05/28/23 Tien Josue MD [address] [place] [address] [email or web address] Historical LMR Provider 04/24/17 documented as of this encounter Additional Source Comments The information contained in this document represents components of the legal health record. It is not the complete legal health record.[facility]
--- OUTSIDE RECORDS SUMMARY | 2025-03-15 16:09 | XMS_ITS | Encounter Summary ---
Author Organization [facility] Address [address] [place] [address] Phone Care Team Providers Care Brick Chimney Supervisor Name Role Phone Tien Josue MD Unavailable [phone] Genaro Castro MD Primary Care Provider Encounter Details Date Type Department Care Team (Late st Contact Info) Description 10/31/2023 Procedure Pass Echo Lab [place] [place] [address] Social History Tobacco Use Types Packs/Day Years [...] Description 07/29/2025 1:40 PM EST Office Visit [facility] [address] [facility] 3rd Floor, [address] [place] [address] Shin Sutton MD [address] [facility], [address] [place] [address] [email or web address] documented as of this encounter Visit Diagnoses Not on filedocumented in this encounter Care Teams Brick Chimney Supervisor Relationship Specialty Start Date End Date Genaro Castro MD [address] [place] [phone] PCP - General Internal Medicine 05/28/23 Tien Josue MD [address] [place] [address] [email or web address] Historical LMR Provider 04/24/17 documented as of this encounter Additional Source Comments The information contained in this document represents components of the legal health record. It is not the complete legal health record.[facility]
== END 2025-03-15 13:36 | disposition home or self-care (01) ==
LOC: HO.LAB 13:35
PROVIDERS: Visit Provider Internal Medicine
DX: E11.9 Type 2 diabetes mellitus without complications (principal); N39.0 Urinary tract infection, site not specified; I10 Essential (primary) hypertension
CPT/HCPCS: 36415; 80053; 80061; 81001; 81003; 83036; 84443; 85025; 87086

== ENCOUNTER 2025-05-19 12:27 | Outpatient (AMB) | payer MEDICARE, SELFPAY ==
--- NOTE | 2025-05-19 12:43 | A.OFFVIS_ITS ---
Vital Signs 05/19/25 12:46 Height 5 ft 10 in Weight 284 lb 6.341 oz BMI 40.8 BP 130/60 Blood Pressure Location Rt brachial Position Sitting Pulse 59 Pulse Source Pulse Oximeter Pulse Oximetry (%) 95 Oxygen Delivery Method Room Air Intake Visit Reasons: T2DM Intake Note: NEW Patient presents today to establish treatment for Type 2 Diabetes Mellitus: Last Diabetic eye exam was on: DUE, patient needs to call to make the appt. Last Podiatry exam was on: Patient does not see a Mds Coordinator Most recent HbA1c: 6.9%, 03/15/2025 Random Glucose: 234 mg/dL Wafer Fab Technician Required: No Accompanied by: Self / Same As Patient Allergies bee pollen (bee stings) Allergy (Mild, Verified 05/19/25 12:44) Hives Medication List - Last Reconciled 05/19/25 by Ember Cai MD allopurinol 100 mg PO BID aspirin 81 mg PO DAILY glipizide ER 5 mg PO BID hydrochlorothiazide 25 mg PO DAILY losartan 100 mg PO DAILY melatonin mg PO DAILY PRN metformin ER (Glucophage XR) 500 mg PO DAILY metoprolol succinate ER 25 mg PO DAILY nystatin 1 appl topical TID rosuvastatin (Crestor) 40 mg PO DAILY tamsulosin 0.4 mg PO DAILY trazodone 25 mg (1/2 x 50 mg) PO BEDTIME HPI Comments Details: The patient is a 79 year old male with past medical history of diabetes presenting for diabetic consultation Medical history CAD, htn, hld, anxiety/depression, BPH, insomnia PCP Anamaria Stern Diagnosed 4-5 year ago DM: Last A1C 6.6% from 7.2% from 8.0% Diabetes On metformin ER 500mg daily On glipizide 5mg twice daily He did not tolerate Jardiance-UTI, jock rash. Intolerant highest doses of diabetes. Family history of diabetes-aunts, father On crestor, losartan. LDL 54 (-)alb/cr Sees [facility] overdue-History of cataracts 2 months ago patient slipped in his apt after letting the sink overflow. He hurt his right knee and had a lot of difficulty walking thereafter. He noticed increased feet for a few weeks thereafter ROS see HPI PHYSICAL EXAM: GENERAL: Alert and oriented x 3. NAD EYES: EOMI. Anicteric. HENT: Moist mucous membranes. No scleral icterus. No cervical lymphadenopathy. LUNGS: Clear to auscultation bilaterally. CARDIOVASCULAR: Regular rate and rhythm. No JVD. ABDOMEN: Soft, non-tender +bs EXTREMITIES: No edema. Non-tender. SKIN: No rashes or lesions. Warm. NEUROLOGIC: No focal neurological deficits. CN II-XII grossly intact PSYCHIATRIC: Cooperative. Appropriate mood and affect [facility] Medical History (Updated 05/19/25 @ 13:04 by LATA Mckeon) Diabetes Hypertension Major depress, part remis Intertriginous candidiasis Surgical History (Updated 05/19/25 @ 13:04 by LATA Mckeon) No pertinent past surgical history Family History Mother Ovarian cancer Father Prostate cancer Social History Housing: Apartment Patient Tobacco Use Status: Never used Tobacco e-Cigarette/Vaping Use: Never Used service: No Current occupational status: retired Cognitive needs: No Hearing needs: No Vision needs: Yes (reading glasses) Physical Exam Vital Signs: Last Vital Signs Pulse 59 05/19/25 12:46 BP 130/60 05/19/25 12:46 Pulse Ox 95 05/19/25 12:46 Oxygen Delivery Method Room Air 05/19/25 12:46 BMI result Body Mass Index 40.8 Results Reviewed Results Reviewed: Laboratory Last Values Glucose (Clinic) 234 mg/dL (60-115) H 05/19/25 13:00 Assessment & Plan Assessment & Plan (1) Diabetes: Code(s): E11.9 - Type 2 diabetes mellitus without complications Category: Medical Qualifiers: Diabetes mellitus complication status: without complication Diabetes mellitus termite inspector insulin use: without senior living use Diabetes mellitus type: type 2 Qualified Code(s): E11.9 - Type 2 diabetes mellitus without complications Plan Type 2 diabetes Well controlled on current medications Referral to ophthalmology, podiatry Recommend checking blood glucose. Refuses. Treat any symptoms of hypoglycemia with juice Patient wants to transfer primary care Orders: Referrals Ophthalmology Referral E11.9 - Type 2 diabetes mellitus without complications Podiatry Referral B35.1 - Tinea unguium, E11.9 - Type 2 diabetes mellitus without complications Coding Level of Care Code Est Pt Level 4 (10077) Diagnoses Type 2 diabetes mellitus without complication, without long-term current use of insulin E11.9 Diabetes mellitus complication status: without complication Diabetes mellitus termite inspector insulin use: without termite inspector use Diabetes mellitus type: type 2
[2025-05-19 12:46] VITALS: BP 130/60; PULSE 59; O2SAT 95; BMI 40.8
[2025-05-19 13:04] LABS: Glucose, Whole Blood 234 mg/dL (60-115)
--- OUTSIDE RECORDS SUMMARY | 2025-05-19 15:35 | XMS_ITS | Encounter Summary ---
Author Organization [facility] Address [address] [place] [address] Phone Care Team Providers Care Science Center Display Builder Name Role Phone Tien Josue MD Unavailable [phone] Genaro Castro MD Primary Care Provider Encounter Details Date Type Department Care Team (Late st Contact Info) Description 01/13/2025 Transcribe Orders [address] [place] [address] Ember Louis MD [address] [place] [address] [phone] Mixed hyperlipidemia (Primary Dx); Urinary tract infection [...] Description 07/29/2025 1:40 PM EST Office Visit [facility] [address] [facility] 3rd Floor, [address] [place] [address] Shin Sutton MD 22 [facility], [address] [place] [address] [email or web address] documented as of this encounter Results * (ABNORMAL) CBC (01/13/2025 10:26 AM EDT) WBC 8.42 4.00 - 11.00 K/uL [facility] RBC 5.38 4.50 - 5.90 M/uL [facility] HGB 16.3 13.5 - 17.5 g/dL [facility] HCT 50.2 41.0 - 53.0 % [facility] PLT 147(L) 150 - 450 K/uL [facility] MCV 93.3 80.0 - 100.0 fL [facility] MCH 30.3 27.0 - 31.0 pg [facility] MCHC 32.5 32.0 - 36.0 g/dL [facility] RDW 14.3 11.5 - 14.5 % [facility] MPV 9.9 8.4 - 12.0 fL [facility] NRBC 0.00 0.00 /100 WBCs [facility] ABSOLUTE NRBC 0.00 0.00 K/uL [facility] Blood 01/13/2025 10:2 6 AM EDT 01/13/2025 10:34 AM EDT us Ember Louis MD LAB BLOOD BKR ORDERABLES Fin al Result [facility] [address] [place] [address] * (ABNORMAL) Comprehensive metabolic panel (01/13/2025 10:26 AM EDT) SODIUM 138 133 - 146 mmol/L [facility] POTASSIUM 4.5 3.3 - 5.1 mmol/L [facility] Comment:Specimen slightly he molyzed, result may be falsely elevated. CHLORIDE 100 96 - 108 mmol/L [facility] CO2 27 21 - 35 mmol/L [facility] BUN 11 6 - 19 mg/dL [facility] CREATININE 0.70 0.5 - 1.5 mg/dL [facility] GLUCOSE 109(H) 70 - 99 mg/dL [facility] ALBUMIN 3.8(L) 3.9 - 4.8 g/dL [facility] TOTAL PROTEIN 7.2 6.5 - 8.0 g/dL [facility] CALCIUM 9.4 8.4 - 10.3 mg/dL [facility] ALKALINE PHOSPHATASE 89 39 - 117 U/L [facility] TOTAL BILIRUBIN 0.6 0.0 - 1.2 mg/dL [facility] AST 44(H) 0 - 37 U/L [facility] ALT 31 0 - 40 U/L [facility] GLOBULIN 3.4 1 - 4.8 g/dL [facility] EGFR 94 >59 mL/min/1.7 3m2 [facility] Comment:Estimated glomerular filtration rate calculated using the CKD-EPI refit equation. ANION GAP 16 10 - 20 mmol/L [facility] Blood 01/13/2025 10:2 6 AM EDT 01/13/2025 10:34 AM EDT us Ember Louis MD LAB BLOOD BKR ORDERABLES Fin al Result [facility] [address] [place] [address] * TSH with reflex (01/13/2025 10:26 AM EDT) TSH 2.74 0.27 - 4.20 uIU/mL [facility] Blood 01/13/2025 10:2 6 AM EDT 01/13/2025 10:34 AM EDT Ember Louis MD LAB BLOOD BKR ORDERABLES Fin al Result Performing Organization Address [facility] de Phone Number [address] [phone] * (ABNORMAL) URINALYSIS WITH SEDIMENT (01/13/2025 10:26 AM EDT) WBC 0-4(A) NONE SEEN /hpf [facility] RBC 0-2(A) NONE SEEN /hpf [facility] URINE EPITHELIAL 0-4(A) NONE SEEN [facility] MUCUS 2+(A) NONE SEEN /hpf [facility] BACTERIA Trace(A) NONE SEEN /hpf [facility] CAST 0-2 [facility] Comment:HYALINE CAST COLOR Yellow Yellow [facility] CLARITY Clear [facility] GLUCOSE Negative Negative [facility] BILI Negative Negative [facility] KETONES Trace(A) Negative [facility] SPECIFIC GRAVITY >1.030 1.005 - 1.030 [facility] BLOOD Negative Negative [facility] PH 6.0 5.0 - 8.0 [facility] Protein-UA 1+(A) Negative [facility] NITRITE Negative Negative [facility] Leukocyte esterase, ur Negative Negative [facility] Urine (Urine) 01/13/2025 10: 26 AM EDT 01/13/2025 10:34 AM EDT Ember Louis MD LAB URINE ORDERABLES Final R esult Performing Organization Address [facility] Co de Phone Number [address] [address] * (ABNORMAL) Urine Culture (01/13/2025 10:26 AM EDT) Special Requests None 01/13/2025 10:27 AM EDT [facility] Urine Culture >100,000 colony forming units per mL MIXED DENA (3 OR MORE COLONY TYPES) Culture indicates contamination . Please resubmit if necessary.(A) 01/15/2025 10:49 AM EDT [facility] Urine (Urine) 01/13/2025 10: 26 AM EDT 01/13/2025 10:35 AM EDT Comment:URINE Ember Louis MD LAB MICROBIOLOGY CULTURE ORD ERABLES Final Result Performing Organization Address [facility] Co de Phone Number [address] [address] * (ABNORMAL) Hemoglobin A1c (01/13/2025 10:26 AM EDT) HEMOGLOBIN A1C 6.5(H) 4.3 - 5.8 % [facility] Blood 01/13/2025 10:2 6 AM EDT 01/13/2025 10:35 AM EDT Ember Louis MD LAB BLOOD BKR ORDERABLES Fin al Result Performing Organization Address [facility] Co de Phone Number [address] [address] * (ABNORMAL) Lipid panel (01/13/2025 10:26 AM EDT) HDL 55 mg/dL [facility] Comment: Interpretation <40 mg/dL: Low HDL cholesterol (major risk factor for CHD) Greater than or equal to 60 mg/dL: High HDL cholesterol ( negative risk factor for CHD) HDL - cholesterol is affected by a number of factors, e.g. smoking, excerise, hormones, sex and age. CHOLESTEROL 133 0 - 240 mg/dL [facility] TRIGLYCERIDES 81 30 - 160 mg/dL [facility] LDL 62 50 - 129 mg/dL [facility] Comment: LDL levels in terms of risk for coronary heart disease: <100 mg/dL: Optimal 100-129 mg/dL: Near or above optimal 130-159 mg/dL: Borderline high 160-189 mg/dL: High >190 mg/dL: Very High CARDIAC RISK RATIO 2.4(L) 3.4 - 5.0 C [facility] Blood 01/13/2025 10:2 6 AM EDT 01/13/2025 10:35 AM EDT us Ember Louis MD LAB BLOOD BKR ORDERABLES Fin al Result [facility] [address] [place] [address] documented in this encounter Visit Diagnoses Diagnosis Mixed hyperlipidemia- Primary Urinary tract infection without hematuria, site unspecified Diabetes mellitus without complication Type II or unspecified type diabetes mellitus without mention of complication, not stated as uncontrolled Hypertension, unspecified type documented in this encounter Care Teams Science Center Display Builder Relationship Specialty Start Date End Date Genaro Castro MD [address] [place] [phone] PCP - General Internal Medicine 05/28/23 Tien Josue MD [address] [place] [address] [email or web address] LMR Provider 04/24/17 documented as of this encounter Additional Source Comments The information contained in this document represents components of the legal health record. It is not the complete legal health record.[facility]
--- OUTSIDE RECORDS SUMMARY | 2025-05-19 15:35 | XMS_ITS | Encounter Summary ---
Author Organization [facility] Address [address] [place] [address] Phone Care Team Providers Care Tack Cutter Name Role Phone Rosa Arzolaadriano Carlson CADMIUM PLATER Unavailable Anam Mcknight MD Unavailable Shin Sutton MD Unavailable Castro Clay DO Unavailable Aydin Cronin MD Unavailable Keegan Acevedo MD Unavailable Tien Josue MD Unavailable [phone] Wanda Morrison MD Primary Care Provider Ed Benton MD Primary Care Provider Genaro Castro MD Primary Care Provider Encounter Details Date Type Department Care Team (Late st Contact Info) Description 10/22/2017 Procedure Pass [facility] Endoscopy Admitting Dept Virtual Department [address] [place] [address] Social History Tobacco Use Types Packs/Day [...] Upcoming Encounters Date Type Department Care Team ([facility] Contact Info) Description 07/29/2025 1:40 PM EST Office Visit [facility] [address] [facility] 3rd Floor, [address] [place] [address] Shin Sutton MD [address] [facility], [address] [place] [address] [email or web address] documented as of this encounter Visit Diagnoses Not on filedocumented in this encounter Additional Health Concerns Infection Onset Date Last Indicated Resolved Time CoV-Risk 04/05/2021 04/05/2021 04/15/2021 1:25 AM EDT documented as of this encounter Care Teams Tack Cutter Relationship Specialty Start Date End Date Wanda Morrison MD [address] [place] [address], [address] [place] [phone] [email or web address] PCP - General Family Medicine 10/22/17 05/19/18 Ed Benton MD [address] [place] [address] PCP - General Internal Medicine 05/20/18 05/27/23 Genaro Castro MD [address] [place] [address] PCP - General Internal Medicine 05/28/23 Tati Arzola NP [address] [place] [address] [email or web address] Historical LMR Provider 04/24/1707/14/21 Anam Mcknight MD [address] [place] [address] [email or web address] Historical LMR Provider 04/24/17 07/14/21 Shin Sutton MD [address] [facility], [address] [place] [address] [email or web address] Historical LMR Provider 04/24/17 07/14/21 Castro Clay DO [address] [place] [address] Orth[facility]ics [facility] Sports Medicine, [place] [address] [email or web address] Historical LMR Provider 04/24/17 07/14/21 Aydin Cronin MD [address] [place] [address] [email or web address] Historical LMR Provider 04/24/17 2 [place] [address] Historical LMR Provider 04/24/17 2 Tien Josue MD [address] [place] [address] [email or web address] Historical LMR Provider 04/24/17 documented as of this encounter Additional Source Comments The information contained in this document represents components of the legal health record. It is not the complete legal health record.[facility]
--- OUTSIDE RECORDS SUMMARY | 2025-05-19 15:35 | XMS_ITS | Clinical Summary ---
Author Organization [facility] Address [address] [place] [address] Phone Care Team Providers Care Contract Processor Name Role Phone Tien Josue MD Unavailable [phone] Genaro Castro MD Primary Care Provider Allergies Active Allergy Reactions Criticality Noted Date Comments Enalapril 02/20/2022 Eizzzki-Ljy-Wxb Reductase Inhibitors Myalgia Medium 06/02/2017 Tolerates rosuvastatin [...] that time. Coronary artery disease invo lving rampart coronary artery of rampart heart without angina pectoris 06/02/2017 Overview (11/28/2017): [...] so sometime in the next several months. Immunizations Immunization Administration Dates Next Due Influenza [...] Description 07/29/2025 1:40 PM EST Office Visit [facility] [address] [place] [address] 3rd Floor, [address] [place] [address] Shin Sutton MD [address] [place] [address], [address] [address] [email or web address] Health Maintenance Due Date Last Done Comments DEPRESSION SCREENING 1958 HEPATITIS C SCREENING 1964 ZOSTER VACCINES (1 of 2) 1996 RSV VACCINE (1 - 1-dose 75+ series) 2021 DIABETIC EYE EXAM 12/23/2023 INFLUENZA VACCINE (#1) 2025 7, 04/18/2017, 05/13/2016 COVID-19 VACCINE ( season) 2025 04/30/2021, 08/14/2020, 07/24/2020 HEMOGLOBIN A1C 07/16/2025 01/13/2025, 10/06, 07/22/2024, Additional [...] on patient's age to complete this topic IPV VACCINES Aged Out No longer eligi ble based on patient's age to complete this topic MENINGOCOCCAL VACCINES (ACWY) Aged Out No longer eligible based on patient's age to complete this topic MENINGOCOCCAL VACCINES (B) Aged Out N o longer eligible based on patient's age to complete this topic Medical Devices Not on file Procedures Procedure Name Priority Date/Time Associated Diagnosis Comments HEMOGLOBIN A1C Routine 01/13/2025 10:26 AM EDT Mixed hyperlipidemia Urinary tract infection without hematuria, site unspecified Diabetes mellitus without complication Hypertension, unspecified type COMPREHENSIVE METABOLIC PANEL (CMP) Routine 01/13/2025 10:26 AM EDT Mixed hyperlipidemia Urinary tract infection without hematuria, site unspecified Diabetes mellitus without complication Hypertension, unspecified type from Last 3 Months or Most Recently Relevant to Health Maintenance Results * (ABNORMAL) Comprehensive metabolic panel (01/13/2025 10:26 AM EDT) SODIUM 138 133 - 146 mmol/L [facility] POTASSIUM 4.5 3.3 - 5.1 mmol/L [facility] Comment:Specimen slightly he molyzed, result may be falsely elevated. CHLORIDE 100 96 - 108 mmol/L [facility] CO2 27 21 - 35 mmol/L [facility] BUN 11 6 - 19 mg/dL [facility] CREATININE 0.70 0.5 - 1.5 mg/dL [facility] GLUCOSE 109(H) 70 - 99 mg/dL [facility] ALBUMIN 3.8(L) 3.9 - 4.8 g/dL [facility] TOTAL PROTEIN 7.2 6.5 - 8.0 g/dL [facility] CALCIUM 9.4 8.4 - 10.3 mg/dL [facility] ALKALINE PHOSPHATASE 89 39 - 117 U/L [facility] TOTAL BILIRUBIN 0.6 0.0 - 1.2 mg/dL [facility] AST 44(H) 0 - 37 U/L [facility] ALT 31 0 - 40 U/L [facility] GLOBULIN 3.4 1 - 4.8 g/dL [facility] EGFR 94 >59 mL/min/1.7 3m2 [facility] Comment:Estimated glomerular filtration rate calculated using the CKD-EPI refit equation. ANION GAP 16 10 - 20 mmol/L [facility] Blood 01/13/2025 10:2 6 AM EDT 01/13/2025 10:34 AM EDT us Ember Louis MD LAB BLOOD BKR ORDERABLES Fin al Result [facility] [address] [place], [place] [id number] * (ABNORMAL) Hemoglobin A1c (01/13/2025 10:26 AM EDT) HEMOGLOBIN A1C 6.5(H) 4.3 - 5.8 % [facility] Blood 01/13/2025 10:2 6 AM EDT 01/13/2025 10:35 AM EDT us Ember Louis MD LAB BLOOD BKR ORDERABLES Fin al Result [address] [phone] from Last 3 Months or Most Recently Relevant to Health Maintenance Insurance [id number] MEDEX SUPPLEMENT MEDICARE PART A & B [id number] MEDEX SUPPLEMENT MEDICARE PART A & B [id number] MEDEX SUPPLEMENT MEDICARE PART A & B [id number] MEDEX SUPPLEMENT MEDICARE PART A & [place] [address] [employer] MEDEX SUPPLEMENT MEDICARE PART A & B [id number] MEDEX SUPPLEMENT MEDICARE PART A & B [id number] MEDEX SUPPLEMENT MEDICARE PART A & B [id number] MEDEX SUPPLEMENT MEDICARE PART A & B [id number] MEDEX SUPPLEMENT MEDICARE PART A & B Care Teams Contract Processor Relationship Specialty Start Date End Date Genaro Castro MD [address] [place] [address] PCP - General Internal Medicine 05/28/23 Tien Josue MD [address] [place] [address] [email or web address] Historical LMR Provider 04/24/17 Additional Source Comments The information contained in this document represents components of the legal health record. It is not the complete legal health record.[facility]
--- OUTSIDE RECORDS SUMMARY | 2025-05-19 15:35 | XMS_ITS | Encounter Summary ---
Author Organization [facility] Address [address] [place] [address] Phone Care Team Providers Care Administrative Appeals Tribunal Member Name Role Phone Tien Josue MD Unavailable [phone] Genaro Castro MD Primary Care Provider Encounter Details Date Type Department Care Team (Late st Contact Info) Description 10/31/2023 Procedure Pass [facility] [address] [place] [address] Social History Tobacco Use Types Packs/Day Years [...] Description 07/29/2025 1:40 PM EST Office Visit [facility] [address] [facility] 3rd Floor, [address] [place] [address] Shni Sutton MD 22 [facility], [address] [place] [address] [email or web address] documented as of this encounter Visit Diagnoses Not on filedocumented in this encounter Care Teams Administrative Appeals Tribunal Member Relationship Specialty Start Date End Date Genaro Castro MD [address] [address] PCP - General Internal Medicine 05/28/23 Tien Josue MD [address] [place] [address] [email or web address] Historical LMR Provider 04/24/17 documented as of this encounter Additional Source Comments The information contained in this document represents components of the legal health record. It is not the complete legal health record.[facility]
--- OUTSIDE RECORDS SUMMARY | 2025-05-19 15:35 | XMS_ITS | Encounter Summary ---
Author Organization [facility] Address [address] [address] Phone Care Team Providers Care Reuse Technician Name Role Phone Tien Josue MD Unavailable [phone] Genaro Castro MD Primary Care Provider Reason for Referral * MRI/CAT Scan - Closed Specialty Diagnoses / Procedures Referred By Richard hammer Referred To Contact Radiology Diagnoses Other forms of angina pectoris Procedures NC Myocardial Perfusion Pharmacologic Stress Multiple NC Myocardial Perfusion Exercise Multiple Shin Sutton MD Phone: tel: fax: [email or web address] Referral ID Status Reason Start Date Expiration Date Visits Re quested Visits Authorized [id number] Closed 05/28/2023 1 1 Encounter Details Date Type Department Care Team (Latest Contact Info) Description 08/14/2023 Ancillary Orders [facility] [address] [place] [address] 3rd Floor, [address] [place] [address] Shin Sutton MD 22 [facility], [address] [address] [email or web address] Essential hypertension (Primary Dx); Coronary artery disease involving ugashik coronary artery of ugashik heart without angina pectoris; Mixed hyperlipidemia; Other [...] Description 07/29/2025 1:40 PM EST Office Visit [facility] [address] [place] [address] 3rd Floor, [address] [place] [address] Shin Sutton MD [address] [place] [address], [address] [address] [email or web address] documented as of this encounter Results [...] in SPECT format, reconstructed tomographically and compared [id number] in short axis, horizontal long axis and [...] of Tc99m Sestamibi by Iglesia Stokes, the nuclear radiologist. 1. EKG - Baseline EKG showed SR [...] Unspecified essential hypertension Coronary artery disease involving ugashik coronary artery of ugashik heart without angina pectoris Mixed hyperlipidemia Other forms of angina pectoris documented in this encounter Care Teams Reuse Technician Relationship Specialty Start Date End Date Genaro Castro MD [address] [place] [address] [address] [place] [address] PCP - General Internal Medicine 05/28/23 Tien Josue MD [address] [place] [address] [email or web address] Historical LMR Provider 04/24/17 documented as of this encounter Additional Source Comments The information contained in this document represents components of the legal health record. It is not the complete legal health record.[facility]
--- OUTSIDE RECORDS SUMMARY | 2025-05-19 15:35 | XMS_ITS | Encounter Summary ---
Author Organization [facility] Address [address] [place] [address] Phone Care Team Providers Care Consumer Affairs Manager Name Role Phone Aydin Cronin MD Primary Care Provider [phone] Tati Arzola HAND VIOLIN MAKER Unavailable Anam Mcknight MD Unavailable Shin Sutton MD Unavailable Castro Clay DO Unavailable Aydin Cronin MD Unavailable Keegan Acevedo MD Unavailable [phone] Tien Josue MD Unavailable [phone] Wanda Morrison MD Primary Care Provider Ed Benton MD Primary Care Provider Genaro Castro MD Primary Care Provider Encounter Details Date Type Department Care Team (Latest Contact Info) Description 09/15/2017 Transcribe Orders [address] [place] [address] Johnnie Castillo MD [address] [facility] [place], [place] [phone] [email or web address] Numbness (Primary Dx); Weakness Social History [...] Description 07/29/2025 1:40 PM EST Office Visit [facility] [address] [place] [address] 3rd Floor, [address] [place], [place] [phone] Shin Sutton MD 22 [facility], [address] [place], [place] [phone] [email or web address] documented as of this encounter Results * Acetylcholine receptor binding antibody (09/15/2017 4:05 PM EDT) ACH RECEPTOR BIND AB 0.00 <=0.02 nmol/L [facility] DPT OF LAB MED AND PAT+ Comment: (NOTE) ADDITIONAL INFORMATION This test was developed and its performance characteristics determined by [facility] in a manner consistent with CLIA requirements. This test has not been cleared or approved by the U.S. Food and Drug Administration. Blood 09/15/2017 4:05 PM EDT 09/16/2017 9:55 AM EDT us Johnnie Castillo MD LAB BLOOD ORDERABLES Final R esult [facility] DPT OF LAB MED AND PAT+ [address] [place] [address] * CPK (creatine kinase) (09/15/2017 4:05 PM EDT) CREATINE KINASE 81 35 - 232 U/L [facility] Blood 09/15/2017 4:05 PM EDT 09/15/2017 6:28 PM EDT us Johnnie Castillo MD LAB BLOOD BKR ORDERABLES Fin al Result [facility] [address] [place] [address] documented in this encounter Visit Diagnoses Diagnosis Numbness- Primary Disturbance of skin sensation Weakness Other malaise and fatigue documented in this encounter Additional Health Concerns Infection Onset Date Last Indicated Resolved Time CoV-Risk 04/05/2021 04/05/2021 04/15/2021 1:25 AM EDT documented as of this encounter Care Teams Consumer Affairs Manager Relationship Specialty Start Date End Date Aydin Cronin MD [address] [address] [email or web address] PCP - General 04/24/17 10/21/17 Wanda Morrison MD [address] [place] [address] [address] [place] [phone] [email or web address] PCP - General Family Medicine 10/22/17 05/19/18 Ed Benton MD [address] [place] [address] PCP - General Internal Medicine 05/20/18 05/27/23 Genaro Castro MD [address] [place] [address] PCP - General Internal Medicine 05/28/23 Tati Arzola NP [address] [place] [address] [email or web address] Historical LMR Provider 04/24/1707/14/21 Anam Mcknight MD 22 [place] [address] [email or web address] Historical LMR Provider 04/24/17 07/14/21 Shin Sutton MD 22 [facility], [facility] [address] [place] [address] [email or web address] Historical LMR Provider 04/24/17 07/14/21 Castro Clay DO [address] [place] [address] [facility], [place] [address] [email or web address] Historical LMR Provider 04/24/17 07/14/21 Aydin Cronin MD [address] [place] [address] [email or web address] Historical LMR Provider 04/24/17 2 Keegan Acevedo MD 22 [place] [address] Historical LMR Provider 04/24/17 2 Tien Josue MD [address] [place] [address] [email or web address] Historical LMR Provider 04/24/17 documented as of this encounter Additional Source Comments The information contained in this document represents components of the legal health record. It is not the complete legal health record.[facility]
== END 2025-05-19 14:28 | disposition home or self-care (01) ==
LOC: HO.ENCR 12:27
PROVIDERS: PCP Physician Assistant; Visit Provider Internal Medicine
DX: E11.9 Type 2 diabetes mellitus without complications (principal)

== ENCOUNTER → 2025-05-19 12:27 | Outpatient (BNVA) | payer MEDICARE, SELFPAY | PROVIDERS: PCP Physician Assistant; Visit Provider Internal Medicine | DX: E11.9 Type 2 diabetes mellitus without complications (principal); Z79.84 Long term (current) use of oral hypoglycemic drugs | CPT/HCPCS: 82947; 99212 ==

== ENCOUNTER 2025-07-04 14:12 | Outpatient (REF) | payer MEDICARE, SELFPAY ==
--- NOTE | ~2025-07-04 | XR_ITS ---
EXAMINATION: XR LUMBAR SPINE 4 OR MORE VIEWS HISTORY: M54.50 - Low back pain, unspecified COMPARISON: There are no prior studies for comparison. FINDINGS: AP, lateral, bilateral oblique and coned down views of the lumbar spine are submitted. Osseous mineralization is normal. Five nonrib-bearing lumbar vertebral bodies are identified, maintaining normal height and alignment without evidence of fracture or spondylolisthesis. There is diffuse moderate degenerative disc disease with disc space narrowing and osteophyte formation. The posterior elements are intact. There is no spondylolysis. The visualized paraspinal soft tissues are unremarkable. XR/XR lumbar spine 4V min IMPRESSION: Moderate degenerative disc disease. Electronically signed by: Abdulkadir Kim MD 07/05/2025 07:48 AM [place]
== END 2025-07-04 14:13 | disposition home or self-care (01) ==
LOC: HO.XRAY 14:12
PROVIDERS: PCP Student in an Organized Health Care Education/Training Program; Visit Provider Student in an Organized Health Care Education/Training Program
DX: M54.42 Lumbago with sciatica, left side (principal); R35.1 Nocturia; M79.89 Other specified soft tissue disorders; D17.1 Benign lipomatous neoplasm of skin and subcutaneous tissue of trunk; I25.10 Atherosclerotic heart disease of native coronary artery without angina pectoris; E11.9 Type 2 diabetes mellitus without complications; I10 Essential (primary) hypertension; E78.2 Mixed hyperlipidemia; Z87.442 Personal history of urinary calculi; Z79.899 Other long term (current) drug therapy
CPT/HCPCS: 72110; 99212

== ENCOUNTER 2025-07-04 14:12 | Outpatient (AMB) | payer MEDICARE, SELFPAY ==
--- NOTE | 2025-07-04 14:21 | A.OFFPC_ITS ---
Vital Signs 07/04/25 14:22 Height 5 ft 10 in Weight 288 lb 8 oz BMI 41.4 BP 130/74 Blood Pressure Location Rt brachial Position Sitting Respiration 16 Pulse 73 Pulse Source Pulse Oximeter Temp 96.8 F Temp Source Temporal Artery Scan Pulse Oximetry (%) 94 Oxygen Delivery Method Room Air Intake Visit Reasons: 4 mo f/u Advertising Writer Required: No Accompanied by: Self / Same As Patient Allergies bee pollen (bee stings) Allergy (Mild, Verified 07/04/25 14:22) Hives Medication List - Last Reconciled 07/04/25 by Rio Ramirez MD aspirin 81 mg PO DAILY glipizide ER 5 mg PO BID hydrochlorothiazide 25 mg PO DAILY losartan 100 mg PO DAILY melatonin mg PO DAILY PRN metformin ER (Glucophage XR) 500 mg PO DAILY metoprolol succinate ER 25 mg PO DAILY nystatin 1 appl topical TID rosuvastatin (Crestor) 40 mg PO DAILY trazodone 25 mg (1/2 x 50 mg) PO BEDTIME Tobacco use date assessed: 12/02/24 Fall risk assessment: 1 Fall in past year Last assessed Fall Risk: 07/04/25 Dental Screening Dental Screen Date: 12/02/24 HPI HPI Comments History of Present Illness Details History of Present Illness The patient is a 80 year old male presenting with back pain. The back pain began this fall after a fall on April 10 on a wet floor, which resulted in him being almost totally immobilized for two and a half weeks. The pain later recurred a month after the fall without a new injury, and the patient attributes this to spending too much time in bed on a soft mattress and his poor posture. The pain is located in the lower back on the left side and is exacerbated by sitting for too long. The patient has a known history of curvature of the spine. He has not had prior physical therapy or X-rays for his back. The patient's past medical history is significant for kidney stones about seven years ago, for which he underwent a removal procedure by a urologist. He was prescribed allopurinol by his urologist to reduce uric acid and prevent further stone formation, and tamsulosin (Flomax) for nocturia. He is no longer taking either medication because he ran out and is unable to travel to [place] for a follow-up appointment with the urologist to get refills. He also has a history of a severe yeast infection. The patient reports that metformin causes explosive diarrhea, and as a result, he rarely has a normal bowel movement. He notes that his bilateral leg swelling has worsened significantly in the last six months and became like balloons after his fall. He also reports feeling lonely, sleeping during the day, and being awake all night. Medical History: - Type 2 diabetes mellitus - Hypertension - Hyperlipidemia - Nephrolithiasis, status post removal 7 years ago - Hyperuricemia - Scoliosis - History of severe yeast infection - Insomnia Surgical History: - Kidney stone removal approximately 7 y ears ago Medications: - Aspirin 81 mg daily for heart disease prevention - Glipizide 5 mg twice a day for diabete s - Hydrochlorothiazide 25 mg daily for bl ood pressure - Losartan 100 mg daily for blood pressu re - Metformin 500 mg once a day for diabet es - Metoprolol succinate 25 mg once a day for blood pressure - Rosuvastatin 40 mg for cholesterol - Trazodone 25 mg at night for sleep - Patient reports he is not taking allop urinol or tamsulosin at this time. Social History - The patient no longer drives and has d ifficulty arranging transportation for medical appointments, particularly to different towns. - He reports feeling lonely. - His sleep schedule is reversed; he is awake all night and sleeps during the day, often falling asleep around 7 a.m. - His activity is limited as he moves sl owly to avoid dyspnea and fatigue. [facility] Medical History (Updated 07/04/25 @ 15:15 by Rio Ramirez MD) Mixed hyperlipidemia CAD (coronary artery disease) Lipoma Swelling of lower extremity Low back pain Diabetes Hypertension Major depress, part remis Intertriginous candidiasis Surgical History (Updated 05/19/25 @ 13:04 by LATA Mckeon) No pertinent past surgical history Family History Mother Ovarian cancer Father Prostate cancer Social History Housing: Apartment Patient Tobacco Use Status: Never used Tobacco e-Cigarette/Vaping Use: Never Used service: No Current occupational status: retired Cognitive needs: No Hearing needs: No Vision needs: Yes (reading glasses) Questionnaire Thrive Questionnaire Date Thrive assessed: 12/02/24 AUDIT C Alcohol Use Questionnaire (AUDIT-C) 1. How often do you have a drink containing alcohol?: Never 3. How often do you have six or more drinks on one occasion?: Never Total Score: 0 YAMILEX-7 AMB Questionnaire YAMILEX-7 Date YAMILEX - 7 assessed: 12/02/24 Source: Developed by Drs. Abdulkadir Stokes, Lary Clark, Merrill Altamirano and colleagues, with an educational sushant from [employer]. Review of Systems Narrative Review of Systems - Constitutional: Reports fatigue on exertion, which he mitigates by moving slowly. Denies nausea or vomiting. - Cardiovascular: Reports dyspnea on exertion. Denies chest pain. - Gastrointestinal: Reports explosive diarrhea as a side effect of metformin, leading to rarely having a solid bowel movement. Denies other bowel issues. - Genitourinary: Reports nocturia about once per night. Denies dysuria or pain with urination. - Musculoskeletal: Reports severe low back pain on the left side, aggravated by prolonged sitting and getting out of bed. Reports pain with leg-raising maneuvers. - Integumentary: Reports a small lump under his left arm. - Extremities: Reports significant bilateral lower extremity edema that has worsened over the past 6 months. - Neurological: Denies radiating pain from his back. All systems reviewed & are unremarkable except as reviewed in HPI and above Physical exam (Primary Care) Vital Signs: Last Vital Signs Temp 96.8 F 07/04/25 14:22 Pulse 73 07/04/25 14:22 Resp 16 07/04/25 14:22 BP 130/74 07/04/25 14:22 Pulse Ox 94 07/04/25 14:22 Oxygen Delivery Method Room Air 07/04/25 14:22 BMI result Body Mass Index 41.4 Tobacco/Smoking Status: Tobacco use Status Tobacco use date assessed 12/02/24 07/04/25 14:36 Patient Tobacco Use Status Never used Tobacco 07/04/25 14:36 e-Cigarette/Vaping Use Never Used 07/04/25 14:36 Thrive Assessment: Date of Thrive Assessment Date Thrive assessed 12/02/24 07/04/25 14:36 Narrative Physical Exam General: +Alert and oriented, Well nourished, No acute distress. Eye: Pupils are equal, round and reactive to light, Intact accommodation, Extraocular movements are intact, Normal conjunctiva, Vision unchanged. HENT: Normocephalic, Atraumatic, Tympanic membranes are clear, Normal hearing, Oral mucosa is moist, No pharyngeal erythema, Ear canals patent. Respiratory: Lungs CTA bilaterally, No wheeze, Respirations are non-labored. Cardiovascular: Regular rate, Regular rhythm, S1 auscultated, S2 auscultated, No murmur, Good pulses equal in all extremities, Normal peripheral perfusion, No edema. Gastrointestinal: Soft, Non-tender, Non-distended, Normal bowel sounds, No organomegaly. Musculoskeletal: Limited range of motion due to back pain, Normal strength, No tenderness, No swelling, No deformity, Normal gait. Integumentary: Warm, Dry, [place], Intact, Presence of a small lipoma under the left axilla. Neurologic: Alert, Oriented, Normal sensory, Normal motor function, No focal defects, Cranial Nerves II-XII are grossly intact, Normal deep tendon reflexes. Psychiatric: Cooperative, Appropriate mood & affect, Normal judgment. Coding Level of Care Code Est Pt Level 4 (11707) Add On Problem Visit Only Diagnoses Acute left-sided low back pain with left-sided sciatica M54.42 Chronicity: acute Back pain laterality: left Sciatica presence: with sciatica Sciatica laterality: sciatica of left side Swelling of lower extremity M79.89 Lipoma of torso D17.1 Lipoma location: trunk Coronary artery disease involving [place] coronary artery of [place] heart without angina pectoris I25.10 Coronary Disease-Associated Artery/Lesion type: [place] artery [place] vs. transplanted heart: [place] heart Associated angina: without angina Type 2 diabetes mellitus without complication, without long-term current use of insulin E11.9 Diabetes mellitus type: type 2 Diabetes mellitus dedicated intermodal truck driver insulin use: without dedicated intermodal truck driver use Diabetes mellitus complication status: without complication Primary hypertension I10 Hypertension type: primary hypertension Mixed hyperlipidemia E78.2 Assessment & Plan Assessment & Plan (1) Low back pain: Comment: - The patient's left-sided low back pain started after a fall in April and recurred a month later. - It is exacerbated by prolonged sitting and getting out of bed. - Possible cause is arthritis of the spine leading to nerve compression. - An X-ray of the back will be obtained today to rule out any fractures. - Physical therapy will be considered pending X-ray results. - The patient is encouraged to remain active. Code(s): M54.50 - Low back pain, unspecified Category: Medical Qualifiers: Chronicity: acute Back pain laterality: left Sciatica presence: with sciatica Sciatica laterality: sciatica of left side Qualified Code(s): M54.42 - Lumbago with sciatica, left side (2) Swelling of lower extremity: Comment: - Swelling in both legs has worsened over the past six months and was severe after his fall. - Advised to elevate his legs above heart level. - Instructed to obtain and wear compression stockings daily, removing them only for sleep. Code(s): M79.89 - Other specified soft tissue disorders Category: Medical (3) Lipoma: Comment: - A soft, mobile, subcutaneous mass was found in the left axilla. - Assessed as a benign lipoma. - Plan is to monitor for any changes in size. - The patient was reassured it is not worrisome but to report if it grows significantly. Code(s): D17.9 - Benign lipomatous neoplasm, unspecified Category: Medical Qualifiers: Lipoma location: trunk Qualified Code(s): D17.1 - Benign lipomatous neoplasm of skin and subcutaneous tissue of trunk (4) CAD (coronary artery disease): Comment: Status post multiple stents and currently being managed on aspirin Code(s): I25.10 - Atherosclerotic heart disease of [place] coronary artery without angina pectoris Category: Medical Qualifiers: Coronary Disease-Associated Artery/Lesion type: [place] artery [place] vs. transplanted heart: [place] heart Associated angina: without angina Qualified Code(s): I25.10 - Atherosclerotic heart disease of [place] coronary artery without angina pectoris (5) Diabetes: Comment: Currently being managed on glipizide 5 mg b.i.d. and metformin 500 mg daily. Sugars are appropriately controlled Code(s): E11.9 - Type 2 diabetes mellitus without complications Category: Medical Qualifiers: Diabetes mellitus type: type 2 Diabetes mellitus dedicated intermodal truck driver insulin use: without dedicated intermodal truck driver use Diabetes mellitus complication status: without complication Qualified Code(s): E11.9 - Type 2 diabetes mellitus without comp lications (6) Hypertension: Comment: Pressure is well controlled on losartan 100 mg daily, hydrochlorothiazide 25 mg daily and metoprolol succinate 25 mg daily. Artery and blood pressure is within normal limits Code(s): I10 - Essential (primary) hypertension Category: Medical Qualifiers: Hypertension type: primary hypertension Qualified Code(s): I10 - Essential (primary) hypertension (7) Mixed hyperlipidemia: Comment: Stable on rosuvastatin 40 mg daily. We will repeat lipid panel at next visit Code(s): E78.2 - Mixed hyperlipidemia Category: Medical Plan: Health Maintenance: - The patient was advised to remain active. - Follow-up scheduled in 4 months for a physical examination and routine blood work. - Use of aspirin 81 mg for heart disease prevention was confirmed. Patient was informed and verbally consented to the use of an ambient scribe for clinic note documentation during this visit. Plan I discussed the patient's low back pain, which started after a recent fall. I explained that while it may be muscular, the differential includes nerve compression from spinal arthritis, and I ordered a back X-ray to rule out any fractures. We discussed that physical therapy might be an option after reviewing the imaging. I reassured him that the pain is unlikely to be related to his history of kidney stones as he has no associated urinary symptoms and the pain quality is different. I also addressed the significant swelling in his legs, advising him to elevate them and wear compression stockings. Regarding the lump under his left arm, I identified it as a benign lipoma and advised we would monitor it, recommending he return if it grows significantly. We reviewed his medications and discussed his non-adherence to allopurinol and tamsulosin, and I stressed the importance of clarifying which medications he is actively taking. A follow-up appointment was scheduled for four months for a physical and blood work, and I confirmed that the labs can be drawn on the same day as the visit to accommodate his transportation difficulties. Orders: Orders XR lumbar spine 4V min Today M54.50 - Low back pain, unspecified Patient Instructions: - Please go to the radiology department today to get an X-ray of your back. - Keep yourself active and continue moving around. - For the swelling in your legs, keep them elevated above your heart and wear compression stockings every day, except when you go to sleep. - The small lump under your left arm is a lipoma, which is not concerning. We will continue to monitor it. Let us know if it grows much larger. - Before your next visit, please confirm whether you are taking allopurinol or tamsulosin. - Please return for a follow-up appointment in four months. We will do a physica l exam and blood work at that time. - You can have your blood work done at our lab right after your next appointment.
[2025-07-04 14:22] VITALS: BP 130/74; PULSE 73; RESP 16; TEMP 36; O2SAT 94; BMI 41.4
--- OUTSIDE RECORDS SUMMARY | 2025-07-04 16:36 | XMS_ITS | Encounter Summary ---
Author Organization [facility] Address [address] [place] [id number] Phone Care Team Providers Care Log Yard Derrick Operator Name Role Phone Aydin Cronin MD Primary Care Provider [phone] Tati Arzola LACQUER DIPPING MACHINE OPERATOR Unavailable Anam Mcknight MD Unavailable Shin Sutton MD Unavailable Castro Clay DO Unavailable Aydin Cronin MD Unavailable Keegan Acevedo MD Unavailable [phone] Tien Josue MD Unavailable [phone] Wanda Morrison MD Primary Care Provider Ed Benton MD Primary Care Provider Genaro Castro MD Primary Care Provider Encounter Details Date Type Department Care Team (Latest Contact Info) Description 09/15/2017 Transcribe Orders [address] [place] [address] Johnnie Castillo MD [address] [facility], [address] [place], [place] [id number] [email or web address] Numbness (Primary Dx); Weakness Social [...] Description 07/29/2025 1:40 PM EST Office Visit [facility] [address] [place] [address] [address]rd Floor, [address] [place], [place] [phone] Shin Sutton MD [address] [facility], [address] [place], [place] [id number] [email or web address] documented as of this encounter Results * Acetylcholine receptor binding antibody (09/15/2017 4:05 PM EDT) ACH RECEPTOR BIND AB 0.00 <=0.02 nmol/L [facility] OF LAB MED AND PAT+ Comment: (NOTE) ADDITIONAL INFORMATION This test was developed and its performance characteristics determined by [facility] in a manner consistent with CLIA requirements. This test has not been cleared or approved by the U.S. Food and Drug Administration. Blood 09/15/2017 4:05 PM EDT 09/16/2017 9:55 AM EDT us Johnnie Castillo MD LAB BLOOD ORDERABLES Final R esult [facility] OF LAB MED AND PAT+ [address] [place] [address] * CPK (creatine kinase) (09/15/2017 4:05 PM EDT) CREATINE KINASE 81 35 - 232 U/L [facility] Blood 09/15/2017 4:05 PM EDT 09/15/2017 6:28 PM EDT us Johnnie Castillo MD LAB BLOOD BKR ORDERABLES Fin al Result [facility] [address] [place] [address] documented in this encounter Visit Diagnoses Diagnosis Numbness- Primary Disturbance of skin sensation Weakness Other malaise and fatigue documented in this encounter Additional Health Concerns Infection Onset Date Last Indicated Resolved Time CoV-Risk 04/05/2021 04/05/2021 04/15/2021 1:25 AM EDT documented as of this encounter Care Teams Log Yard Derrick Operator Relationship Specialty Start Date End Date Aydin Cronin MD [facility] [place] [address] [email or web address] PCP - General 04/24/17 10/21/17 Wanda Morrison MD [address] [place] [address] [phone] [email or web address] PCP - General Family Medicine 10/22/17 05/19/18 Ed Benton MD [address] [place] [address] PCP - General Internal Medicine 05/20/18 05/27/23 Genaro Castro MD [address] [place] [address] PCP - General Internal Medicine 05/28/23 Tati Arzola NP [address] [place] [address] [email or web address] Historical LMR Provider 04/24/1707/14/21 Anam Mckinght MD [address] [place] [address] [email or web address] Historical LMR Provider 04/24/17 07/14/21 Shin Sutton MD [address] [facility], [facility] [address] [place] [address] [email or web address] Historical LMR Provider 04/24/17 07/14/21 Castro Clay DO [address] [place] [address] Orthopedics [facility] Sports Medicine, [place] [address] [email or web address] Historical LMR Provider 04/24/17 07/14/21 Aydin Cronin MD [address] [place] [address] [email or web address] Historical LMR Provider 04/24/17 2 Keegan Acevedo MD [address] [place] [address] Historical LMR Provider 04/24/17 2 Tien Josue MD [address] [place] [address] [email or web address] Historical LMR Provider 04/24/17 documented as of this encounter Additional Source Comments The information contained in this document represents components of the legal health record. It is not the complete legal health record.[facility]
--- OUTSIDE RECORDS SUMMARY | 2025-07-04 16:36 | XMS_ITS | Encounter Summary ---
Author Organization [facility] Address [address] [facility] [address] [place] [address] Phone Care Team Providers Care Rod Mill Tender Name Role Phone Tien Josue MD Unavailable [phone] Genaro Castro MD Primary Care Provider Reason for Referral * MRI/CAT Scan - Closed Specialty Diagnoses / Procedures Referred By Richard hammer Referred To Contact Radiology Diagnoses Other forms of angina pectoris Procedures NC Myocardial Perfusion Pharmacologic Stress Multiple NC Myocardial Perfusion Exercise Multiple Shin Sutton MD Phone: tel: fax: [email or web address] Referral ID Status Reason Start Date Expiration Date Visits Re quested Visits Authorized [id number] Closed 05/28/2023 1 1 Encounter Details Date Type Department Care Team (Latest Contact Info) Description 08/14/2023 Ancillary Orders [facility] [address] [place] [address] [address]rd Floor, [address] [place] [address] Shin Sutton MD [address] [place] [address], [address] [address] [email or web address] Essential hypertension (Primary Dx); Coronary artery disease involving [place] coronary artery of [place] heart without angina pectoris; Mixed hyperlipidemia; Other [...] Description 07/29/2025 1:40 PM EST Office Visit [facility] [address] [place] [address] [address] Floor, [address] [place] [address] Shin Sutton MD [address] [facility], [address] [place] [id number] [email or web address] documented as of this encounter Results * NC Myocardial Perfusion Pharmacologic Stress Multiple (08/14/2023 2:25 PM EST) [facility] Stress/rest perfusion ratio 1.02 Nuc Stress EF [...] in SPECT format, reconstructed tomographically and compared [id number] in short axis, horizontal long axis and [...] Tc99m Sestamibi by Iglesia Stokes, the nuclear technician. 1. EKG - Baseline EKG showed SR [...] Unspecified essential hypertension Coronary artery disease involving [place] coronary artery of [place] heart without angina pectoris Mixed hyperlipidemia Other forms of angina pectoris documented in this encounter Care Teams Rod Mill Tender Relationship Specialty Start Date End Date Genaro Castro MD [address] [place] [address] [address] [place] [address] PCP - General Internal Medicine 05/28/23 Tien Josue MD [address] [place] [address] [address] [place] [address] [email or web address] Historical LMR Provider 04/24/17 documented as of this encounter Additional Source Comments The information contained in this document represents components of the legal health record. It is not the complete legal health record.[facility]
--- OUTSIDE RECORDS SUMMARY | 2025-07-04 16:36 | XMS_ITS | Clinical Summary ---
Author Organization [facility] Address [address] [place] [address] Phone Care Team Providers Care Service Line Layer Name Role Phone Tien Josue MD Unavailable [phone] Genaro Castro MD Primary Care Provider Allergies Active Allergy Reactions Criticality Noted Date Comments Enalapril 02/20/2022 Qcepxnj-Bjh-Qlz Reductase Inhibitors Myalgia Medium 06/02/2017 Tolerates rosuvastatin [...] that time. Coronary artery disease invo lving yocha dehe coronary artery of yocha dehe heart without angina pectoris 06/02/2017 Overview (11/28/2017): [...] Description 07/29/2025 1:40 PM EST Office Visit [facility] [address] [place] [address] 3rd Floor, [address] [place] [address] Shin Sutton MD [address] [facility], [address] [place] [address] [email or web address] Health Maintenance Due Date Last Done Comments [...] EDT) SODIUM 138 133 - 146 mmol/L [facility] POTASSIUM 4.5 3.3 - 5.1 mmol/L [facility] Comment:Specimen slightly he molyzed, result may be falsely elevated. CHLORIDE 100 96 - 108 mmol/L [facility] CO2 27 21 - 35 mmol/L [facility] BUN 11 6 - 19 mg/dL [facility] CREATININE 0.70 0.5 - 1.5 mg/dL [facility] GLUCOSE 109(H) 70 - 99 mg/dL [facility] ALBUMIN 3.8(L) 3.9 - 4.8 g/dL [facility] TOTAL PROTEIN 7.2 6.5 - 8.0 g/dL [facility] CALCIUM 9.4 8.4 - 10.3 mg/dL [facility] ALKALINE PHOSPHATASE 89 39 - 117 U/L [facility] TOTAL BILIRUBIN 0.6 0.0 - 1.2 mg/dL [facility] AST 44(H) 0 - 37 U/L [facility] ALT 31 0 - 40 U/L [facility] GLOBULIN 3.4 1 - 4.8 g/dL [facility] EGFR 94 >59 mL/min/1.7 3m2 [facility] Comment:Estimated glomerular filtration rate calculated using the CKD-EPI refit equation. ANION GAP 16 10 - 20 mmol/L [facility] Blood 01/13/2025 10:2 6 AM EDT 01/13/2025 10:34 AM EDT us Ember Louis MD LAB BLOOD BKR ORDERABLES Fin al Result Performing Organization Address City/[facility]/ZIP Co de Phone Number [address] [address] * (ABNORMAL) Hemoglobin A1c (01/13/2025 10:26 AM EDT) HEMOGLOBIN A1C 6.5(H) 4.3 - 5.8 % [facility] Blood 01/13/2025 10:2 6 AM EDT 01/13/2025 10:35 AM EDT us Ember Louis MD LAB BLOOD BKR ORDERABLES Fin al Result [address] [address] from Last 3 Months or Most Recently Relevant to Health Maintenance Insurance [employer] MEDEX SUPPLEMENT MEDICARE PART A & B [employer] SUPPLEMENT MEDICARE PART A & B [employer] SU[employer]MENT MEDICARE PART A & B [employer] SUPPLEMENT MEDICARE PART A & B [facility] MEDEX SUPPLEMENT MEDICARE PART A & B [employer] MED[employer] SUPPLEMENT MEDICARE PART A & B [employer] SU[employer]MENT MEDICARE PART A & B [employer]MENT MEDICARE PART A & B [employer]MENT MEDICARE PART A & B Care Teams Service Line Layer Relationship Specialty Start Date End Date Genaro Castro MD [address] [place] [address] [place] [address] PCP - General Internal Medicine 05/28/23 Tien Josue MD [address] [place] [address] [email or web address] Historical LMR Provider 04/24/17 Additional Source Comments The information contained in this document represents components of the legal health record. It is not the complete legal health record.[facility]
--- OUTSIDE RECORDS SUMMARY | 2025-07-04 16:36 | XMS_ITS | Encounter Summary ---
Author Organization [facility] Address [address] [place] [address] Phone Care Team Providers Care Documentation Billing Clerk Name Role Phone Rosa Arzolaadriano Carlson TRIMMING CASER Unavailable nAam Mcknight MD Unavailable Shin Sutton MD Unavailable Castro Clay DO Unavailable Aydin Cronin MD Unavailable Keegan Acevedo MD Unavailable [phone] Tien Josue MD Unavailable Wanda Morrison MD Primary Care Provider Ed Benton MD Primary Care Provider Genaro Castro MD Primary Care Provider Encounter Details Date Type Department Care Team (Late st Contact Info) Description 10/22/2017 Procedure Pass [facility] Endoscopy Admitting Dept Virtual Department [address] [place] [address] Social History Tobacco Use Types Packs/Day [...] Upcoming Encounters Date Type Department Care Team ([facility] Contact Info) Description 07/29/2025 1:40 PM EST Office Visit [facility] [address] [place] [address] 3rd Floor, [address] [place] [address] Shin Sutton MD [address] [facility], [address] [place] [address] [email or web address] documented as of this encounter Visit Diagnoses Not on filedocumented in this encounter Additional Health Concerns Infection Onset Date Last Indicated Resolved Time CoV-Risk 04/05/2021 04/05/2021 04/15/2021 1:25 AM EDT documented as of this encounter Care Teams Documentation Billing Clerk Relationship Specialty Start Date End Date Wanda Morrison MD [address] [place] [address], [address] [place] [phone] [email or web address] PCP - General Family Medicine 10/22/17 05/19/18 Ed Benton MD [address] [place] [address] PCP - General Internal Medicine 05/20/18 05/27/23 Genaro Castro MD [address] [place] [address] PCP - General Internal Medicine 05/28/23 Tati Arzola NP [address] [place] [address] [email or web address] Historical LMR Provider 04/24/1707/14/21 Anam Mcknight MD [address] [place] [address] [email or web address] Historical LMR Provider 04/24/17 07/14/21 Shin Sutton MD [address] [facility], [address] [place] [address] [email or web address] Historical LMR Provider 04/24/17 07/14/21 Castro Clay DO [address] [place] [address] Orthopedics [facility] Sports Medicine, [place] [address] [email or web address] Historical LMR Provider 04/24/17 07/14/21 Aydin Cronin MD [address] [place] [address] [email or web address] Historical LMR Provider 04/24/17 2 Keegan Acevedo MD [address] [place] [address] Historical LMR Provider 04/24/17 2 Tien Josue MD [address] [place] [address] [email or web address] Historical LMR Provider 04/24/17 documented as of this encounter Additional Source Comments The information contained in this document represents components of the legal health record. It is not the complete legal health record.[facility]
--- OUTSIDE RECORDS SUMMARY | 2025-07-04 16:36 | XMS_ITS | Encounter Summary ---
Author Organization [facility] Address [address] [place] [address] Phone Care Team Providers Care Acting Section Chief Name Role Phone Tien Josue MD Unavailable [phone] Genaro Castro MD Primary Care Provider Encounter Details Date Type Department Care Team (Late st Contact Info) Description 10/31/2023 Procedure Pass [facility] [address] [place] [address] Social History Tobacco Use Types Packs/Day Years [...] Description 07/29/2025 1:40 PM EST Office Visit [facility] [address] [place] [address] 3rd Floor, [address] [place] [address] Shin Sutton MD [address] [facility], [address] [place] [address] [email or web address] documented as of this encounter Visit Diagnoses Not on filedocumented in this encounter Care Teams Acting Section Chief Relationship Specialty Start Date End Date Genaro Castro MD [address] [place] [address] PCP - General Internal Medicine 05/28/23 Tien Josue MD [address] [place] [address] [email or web address] Historical LMR Provider 04/24/17 documented as of this encounter Additional Source Comments The information contained in this document represents components of the legal health record. It is not the complete legal health record.[facility]
--- OUTSIDE RECORDS SUMMARY | 2025-07-04 16:36 | XMS_ITS | Encounter Summary ---
Author Organization [facility] Address [address] [place] [address] [place] [address] Phone Care Team Providers Care Bindery Machine Operator Name Role Phone Tien Josue MD Unavailable [phone] Genaro Castro MD Primary Care Provider Encounter Details Date Type Department Care Team (Late st Contact Info) Description 01/13/2025 Transcribe Orders [address] [place] [address] Ember Louis MD [address] [place] [phone] Mixed hyperlipidemia (Primary Dx); Urinary tract infection [...] Description 07/29/2025 1:40 PM EST Office Visit [facility] [address] [facility] 3rd Floor, [address] [place] [address] Shin Sutton MD [address] [facility], [address] [place] [address] [email or web address] documented as of this encounter Results * (ABNORMAL) CBC (01/13/2025 10:26 AM EDT) WBC 8.42 4.00 - 11.00 K/uL [facility] RBC 5.38 4.50 - 5.90 M/uL [facility] HGB 16.3 13.5 - 17.5 g/dL [facility] HCT 50.2 41.0 - 53.0 % [facility] PLT 147(L) 150 - 450 K/uL [facility] MCV 93.3 80.0 - 100.0 fL [facility] MCH 30.3 27.0 - 31.0 pg [facility] MCHC 32.5 32.0 - 36.0 g/dL [facility] RDW 14.3 11.5 - 14.5 % [facility] MPV 9.9 8.4 - 12.0 fL [facility] NRBC 0.00 0.00 /100 WBCs [facility] ABSOLUTE NRBC 0.00 0.00 K/uL [facility] Blood 01/13/2025 10:2 6 AM EDT 01/13/2025 10:34 AM EDT us Ember Louis MD LAB BLOOD BKR ORDERABLES Fin al Result [facility] [address] [place] [address] * (ABNORMAL) Comprehensive metabolic panel (01/13/2025 10:26 AM EDT) SODIUM 138 133 - 146 mmol/L [facility] POTASSIUM 4.5 3.3 - 5.1 mmol/L [facility] Comment:Specimen slightly he molyzed, result may be falsely elevated. CHLORIDE 100 96 - 108 mmol/L [facility] CO2 27 21 - 35 mmol/L [facility] BUN 11 6 - 19 mg/dL [facility] CREATININE 0.70 0.5 - 1.5 mg/dL [facility] GLUCOSE 109(H) 70 - 99 mg/dL [facility] ALBUMIN 3.8(L) 3.9 - 4.8 g/dL [facility] TOTAL PROTEIN 7.2 6.5 - 8.0 g/dL [facility] CALCIUM 9.4 8.4 - 10.3 mg/dL [facility] ALKALINE PHOSPHATASE 89 39 - 117 U/L [facility] TOTAL BILIRUBIN 0.6 0.0 - 1.2 mg/dL [facility] AST 44(H) 0 - 37 U/L [facility] ALT 31 0 - 40 U/L [facility] GLOBULIN 3.4 1 - 4.8 g/dL [facility] EGFR 94 >59 mL/min/1.7 3m2 [facility] Comment:Estimated glomerular filtration rate calculated using the CKD-EPI refit equation. ANION GAP 16 10 - 20 mmol/L [facility] Blood 01/13/2025 10:2 6 AM EDT 01/13/2025 10:34 AM EDT us Ember Louis MD LAB BLOOD BKR ORDERABLES Fin al Result [facility] [address] [place] [address] * TSH with reflex (01/13/2025 10:26 AM EDT) TSH 2.74 0.27 - 4.20 uIU/mL [facility] Blood 01/13/2025 10:2 6 AM EDT 01/13/2025 10:34 AM EDT Ember Louis MD LAB BLOOD BKR ORDERABLES Fin al Result Performing Organization Address [facility] de Phone Number [address] [address] * (ABNORMAL) URINALYSIS WITH SEDIMENT (01/13/2025 10:26 AM EDT) WBC 0-4(A) NONE SEEN /hpf [facility] RBC 0-2(A) NONE SEEN /hpf [facility] URINE EPITHELIAL 0-4(A) NONE SEEN [facility] MUCUS 2+(A) NONE SEEN /hpf [facility] BACTERIA Trace(A) NONE SEEN /hpf [facility] CAST 0-2 [facility] Comment:HYALINE CAST COLOR Yellow Yellow [facility] CLARITY Clear [facility] GLUCOSE Negative Negative [facility] BILI Negative Negative [facility] KETONES Trace(A) Negative [facility] SPECIFIC GRAVITY >1.030 1.005 - 1.030 [facility] BLOOD Negative Negative [facility] PH 6.0 5.0 - 8.0 [facility] Protein-UA 1+(A) Negative [facility] NITRITE Negative Negative [facility] Leukocyte esterase, ur Negative Negative [facility] Urine (Urine) 01/13/2025 10: 26 AM EDT 01/13/2025 10:34 AM EDT Ember Louis MD LAB URINE ORDERABLES Final R esult Performing Organization Address [facility] Co de Phone Number [address] [address] * (ABNORMAL) Urine Culture (01/13/2025 10:26 AM EDT) Special Requests None 01/13/2025 10:27 AM EDT [facility] Urine Culture >100,000 colony forming units per mL MIXED DENA (3 OR MORE COLONY TYPES) Culture indicates contamination . Please resubmit if necessary.(A) 01/15/2025 10:49 AM EDT [facility] Urine (Urine) 01/13/2025 10: 26 AM EDT 01/13/2025 10:35 AM EDT Comment:URINE Ember Louis MD LAB MICROBIOLOGY CULTURE ORD ERABLES Final Result Performing Organization Address City/[facility]/ZIP Co de Phone Number [address] [address] * (ABNORMAL) Hemoglobin A1c (01/13/2025 10:26 AM EDT) HEMOGLOBIN A1C 6.5(H) 4.3 - 5.8 % [facility] Blood 01/13/2025 10:2 6 AM EDT 01/13/2025 10:35 AM EDT Ember Louis MD LAB BLOOD BKR ORDERABLES Fin al Result Performing Organization Address [facility] Co de Phone Number [address] [address] * (ABNORMAL) Lipid panel (01/13/2025 10:26 AM EDT) HDL 55 mg/dL [facility] Comment: Interpretation <40 mg/dL: Low HDL cholesterol (major risk factor for CHD) Greater than or equal to 60 mg/dL: High HDL cholesterol ( negative risk factor for CHD) HDL - cholesterol is affected by a number of factors, e.g. smoking, excerise, hormones, sex and age. CHOLESTEROL 133 0 - 240 mg/dL [facility] TRIGLYCERIDES 81 30 - 160 mg/dL [facility] LDL 62 50 - 129 mg/dL [facility] Comment: LDL levels in terms of risk for coronary heart disease: <100 mg/dL: Optimal 100-129 mg/dL: Near or above optimal 130-159 mg/dL: Borderline high 160-189 mg/dL: High >190 mg/dL: Very High CARDIAC RISK RATIO 2.4(L) 3.4 - 5.0 [facility] Blood 01/13/2025 10:2 6 AM EDT 01/13/2025 10:35 AM EDT us Ember Louis MD LAB BLOOD BKR ORDERABLES Fin al Result [facility] [address] [place] [address] documented in this encounter Visit Diagnoses Diagnosis Mixed hyperlipidemia- Primary Urinary tract infection without hematuria, site unspecified Diabetes mellitus without complication Type II or unspecified type diabetes mellitus without mention of complication, not stated as uncontrolled Hypertension, unspecified type documented in this encounter Care Teams Bindery Machine Operator Relationship Specialty Start Date End Date Genaro Castro MD [address] [place] [address] PCP - General Internal Medicine 05/28/23 Tien Josue MD [address] [place] [phone] [email or web address] LMR Provider 04/24/17 documented as of this encounter Additional Source Comments The information contained in this document represents components of the legal health record. It is not the complete legal health record.[facility]
== END 2025-07-04 15:02 | disposition home or self-care (01) ==
LOC: HO.HMCHD 14:13
PROVIDERS: PCP Internal Medicine; Visit Provider Student in an Organized Health Care Education/Training Program
DX: M54.42 Lumbago with sciatica, left side (principal); M79.89 Other specified soft tissue disorders; D17.1 Benign lipomatous neoplasm of skin and subcutaneous tissue of trunk; I25.10 Atherosclerotic heart disease of native coronary artery without angina pectoris; E11.9 Type 2 diabetes mellitus without complications; I10 Essential (primary) hypertension; E78.2 Mixed hyperlipidemia

== ENCOUNTER → 2025-07-04 15:37 | Outpatient (BNV) | payer MEDICARE, SELFPAY | PROVIDERS: PCP Student in an Organized Health Care Education/Training Program; Visit Provider Radiology Diagnostic Radiology | DX: M51.360 Other intervertebral disc degeneration, lumbar region with discogenic back pain only (principal) | CPT/HCPCS: 72110 ==